=== PATIENT | female | born 1935 | race Two or more races ===

== ENCOUNTER 2018-07-26 12:49 | Inpatient (IN) | payer MEDICARE, BC ==
[~2018-07-26] VITALS: Ht 149.9 cm; Wt 59.5 kg
--- NOTE | 2018-07-26 13:00 | NUR ---
ED Nurse Note: Brought in by ambulance from home c/o due to SOB. POA, daughter called 911 Patient is under hospiece care. Awake, but non verbal. Sacral / heel skin is intact
[2018-07-26 13:55] LABS: BASOPHILS % (AUTO) 0.3 % (0.0-2.0); EOSINOPHILS % (AUTO) 0.1 % (0.0-3.0); HEMATOCRIT 48.9 % (37.0-47.0); HEMOGLOBIN 15.7 G/DL (12.0-16.0); LYMPHOCYTES % (AUTO) 9.5 % (20.0-45.0); MEAN CORPUSCULAR VOLUME 93 FL (80-99); MONOCYTES % (AUTO) 6.5 % (1.0-10.0); NEUTROPHILS % (AUTO) 83.6 % (45.0-75.0); PLATELET COUNT 362 K/UL (150-450); RED BLOOD COUNT 5.23 M/UL (4.20-5.40); RED CELL DISTRIBUTION WIDTH 13.4 % (11.6-14.8); WHITE BLOOD COUNT 10.9 K/UL (4.8-10.8)
[2018-07-26 14:07] LABS: ANION GAP 4 mmol/L (5-15); BLOOD UREA NITROGEN 57 mg/dL (7-18); CALCIUM 9.9 MG/DL (8.5-10.1); CARBON DIOXIDE 33 MMOL/L (21-32); CHLORIDE 113 MMOL/L (98-107); CREATININE 1.2 MG/DL (0.55-1.30); POTASSIUM 3.7 MMOL/L (3.5-5.1); SODIUM 150 MMOL/L (136-145)
[2018-07-26] MEDS ORDERED: UNOBMED (14:08)
[2018-07-26 14:12] LABS: ALANINE AMINOTRANSFERASE 22 U/L (12-78); ALBUMIN 3.5 G/DL (3.4-5.0); ALBUMIN/GLOBULIN RATIO 0.9 (1.0-2.7); ALKALINE PHOSPHATASE 67 U/L (46-116); ASPARTATE AMINO TRANSFERASE 45 U/L (15-37); BILIRUBIN,TOTAL 0.8 MG/DL (0.2-1.0); CREATINE KINASE 162 U/L (26-308)
[2018-07-26] MEDS ORDERED: Levalbuterol Inh UD 1.25mg/0.5ml HHN ONE (14:15)
[2018-07-26] MEDS ORDERED: LORazepam Inj 2mg/ml 1ml IV ONE (14:15)
[2018-07-26] MEDS ORDERED: Solu-MEDROL 125mg Inj IVP ONE (14:30)
--- NOTE | 2018-07-26 14:43 | Emergency Room Report ---
History of Present Illness General Chief Complaint: Dyspnea/Respdistress Source: Patient, Family Member, EMS Present Illness HPI Patient presents by paramedics with reports of respiratory distress Sensation of doom Daughter is here who reports the patient is in hospice care they have been attempting IV hydration Also antipsychotic medication however the patient appeared extremely agitated she did not feel comfortable with the patient at home and call paramedics Patient herself is nonverbal Has a gaze to the right side Upon arrival of the daughter she reports that the patient looks significantly better than previous She is still requesting no intubation and no CPR Allergies: Coded Allergies: ASPIRIN (Verified Allergy, Unknown, 07/26/18) Patient History Past Medical History: see triage record Pertinent Family History: none Reviewed Nursing Documentation: PMH: Agreed; PSxH: Agreed Nursing Documentation-PMH Past Medical History: No History, Except For Hx Cardiac Problems: Yes Hx Hypertension: Yes Hx COPD: Yes - emphysema Hx Diabetes: Yes Review of Systems All Other Systems: limited - Other than the ones mentioned in the history of present illness all others are reviewed however they do stay limited due to the patient's mental status Physical Exam Vital Signs Date Time Temp Pulse Resp B/P (MAP) Pulse Ox O2 Delivery O2 Flow Rate FiO2 07/26/18 12:53 95.2 120 4 141/90 97 Room Air 07/26/18 14:21 4.0 36 Sp02 EP Interpretation: reviewed, normal General Appearance: moderate distress - Tachypneic Head: normocephalic, atraumatic Eyes: bilateral eye PERRL, bilateral eye EOMI ENT: dry mucus membranes Neck: supple, no meningismus Respiratory: crackles, wheezing - Bilaterally mildly tachypneic Cardiovascular #1: tachycardia Gastrointestinal: non tender, soft Musculoskeletal: normal inspection Neurologic: other - Responsive to physical stimuli otherwise decreased GCS nonverbal, daughter reports is normal for the patient Skin: normal color, no rash Lymphatic: no adenopathy Procedures Critical Care Time Critical Care Time 50 minutes for multiple re-evaluations, critical presentation concerning for specific failure not including any procedural time Medical Decision Making Diagnostic Impression: Primary Impression: Respiratory distress ER Course Patient is a fairly complex patient with multiple differential to consideration including but not limited to cardiac cardiopulmonary and vascular emergencies Patient provided with further hydration breathing treatments oxygenation daughter reports the patient looks significantly improved She would like to have the patient remain DO NOT RESUSCITATE, and no CPR however would like some intervention regarding IV hydration and comfort care X-ray does not show any acute pathology patient admitted for further inpatient care Labs Test 07/26/18 13:15 White Blood Count 10.9 K/UL (4.8-10.8) Red Blood Count 5.23 M/UL (4.20-5.40) Hemoglobin 15.7 G/DL (12.0-16.0) Hematocrit 48.9 % (37.0-47.0) Mean Corpuscular Volume 93 FL (80-99) Mean Corpuscular Hemoglobin 30.1 PG (27.0-31.0) Mean Corpuscular Hemoglobin Concent 32.1 G/DL (32.0-36.0) Red Cell Distribution Width 13.4 % (11.6-14.8) Platelet Count 362 K/UL (150-450) Mean Platelet Volume 5.4 FL (6.5-10.1) Neutrophils (%) (Auto) 83.6 % (45.0-75.0) Lymphocytes (%) (Auto) 9.5 % (20.0-45.0) Monocytes (%) (Auto) 6.5 % (1.0-10.0) Eosinophils (%) (Auto) 0.1 % (0.0-3.0) Basophils (%) (Auto) 0.3 % (0.0-2.0) Sodium Level 150 MMOL/L (136-145) Potassium Level 3.7 MMOL/L (3.5-5.1) Chloride Level 113 MMOL/L (98-107) Carbon Dioxide Level 33 MMOL/L (21-32) Anion Gap 4 mmol/L (5-15) Blood Urea Nitrogen 57 mg/dL (7-18) Creatinine 1.2 MG/DL (0.55-1.30) Estimat Glomerular Filtration Rate mL/min (>60) Glucose Level 130 MG/DL (74-106) Lactic Acid Level 1.40 mmol/L (0.4-2.0) Calcium Level 9.9 MG/DL (8.5-10.1) Total Bilirubin 0.8 MG/DL (0.2-1.0) Aspartate Amino Transf (AST/SGOT) 45 U/L (15-37) Alanine Aminotransferase (ALT/SGPT) 22 U/L (12-78) Alkaline Phosphatase 67 U/L (46-116) Total Creatine Kinase 162 U/L (26-308) Troponin I 0.470 ng/mL (0.000-0.056) Total Protein 7.4 G/DL (6.4-8.2) Albumin 3.5 G/DL (3.4-5.0) Globulin 3.9 g/dL Albumin/Globulin Ratio 0.9 (1.0-2.7) Rhythm Strip Diag. Results EP Interpretation: yes Rate: 125 Rhythm: no PVC's, no ectopy, other - Sinus tach Chest X-Ray Diagnostic Results Chest X-Ray Diagnostic Results : Chest X-Ray Ordered: Yes # of Views/Limited/Complete: 1 View Indication: Chest Pain EP Interpretation: Yes Interpretation: no consolidation, no effusion, no pneumothorax Impression: No acute disease - Some pulmonary congestion Electronically Signed by: Delfina Boone DO Last Vital Signs Date Time Temp Pulse Resp B/P (MAP) Pulse Ox O2 Delivery O2 Flow Rate FiO2 07/26/18 14:34 119 19 98 Nasal Cannula 4.0 36 07/26/18 12:53 95.2 141/90 Status: improved Disposition: ADMITTED INPATIENT Condition: Critical Referrals: NON PHYSICIAN (PCP) Delfina Boone DO Jul 26, 2018 14:43
[2018-07-26 14:51] LABS: APPEARANCE,URINE CLEAR; BILIRUBIN, URINE NEGATIVE (NEGATIVE); GLUCOSE, URINE (UA) NEGATIVE (NEGATIVE); KETONES,URINE 2+ (NEGATIVE); LEUKOCYTE ESTERASE ,URINE NEGATIVE (NEGATIVE); NITRITE,URINE NEGATIVE (NEGATIVE); PH,URINE 5 (4.5-8.0); PROTEIN,URINE 3+ (NEGATIVE); UROBILINOGEN,URINE NORMAL MG/DL (0.0-1.0)
[2018-07-26 14:52] LABS: COLOR,URINE YELLOW
[2018-07-26] MEDS ORDERED: OLANZAPINE5 MG ORAL (14:58)
[2018-07-26] MEDS ORDERED: LORAZEPAM2 MG/1 M4 ORAL (14:58)
[2018-07-26] MEDS ORDERED: GABAPENTIN100 MG ORAL (14:58)
[2018-07-26 14:59] VITALS: BP 163/100
--- NOTE | 2018-07-26 15:02 | NUR ---
ED Nurse Note: Report given to Favian HARE Updated daughter Ivone AVILEZ, ENdorsed to Favian that Hospice Nurse number is [phone] Patient has no belongings
[2018-07-26 15:32] VITALS: BP 180/100
--- NOTE | 2018-07-26 15:36 | NUR ---
NURSE NOTES: received pt awake alert, nonverbal, no distress. 96%o2 on 2lnc, sacral intact, hr 130 by palpation, bp 180/100, relayedto Dr Warren along with asking md for prn and admit orders. awaiting response
--- NOTE | 2018-07-26 16:03 | NUR ---
NURSE NOTES: paged Dr Warren 2nd attempt to get admit orders also awaiting med info from [facility]
[2018-07-26] MEDS ORDERED: LORazepam 1mg tab ORAL PRN ×2 (16:30→18:30)
--- NOTE | 2018-07-26 16:49 | Diagnostic Imaging Report ---
Indication: Chest pain, history of COPD Technique: One view of the chest Comparison: none Findings: There is mild generalized interstitial prominence and central bronchial wall thickening. No focal airspace consolidation. No effusions. Heart size is normal. The aorta is tortuous and calcified Impression: Minimal interstitial prominence and central bronchial wall thickening, suspect related to senescent and/or COPD changes. No definite acute process
[2018-07-26] MEDS ORDERED: PREDNISONE20 MG ORAL (18:07)
[2018-07-26] MEDS ORDERED: ATROVENT HFA12.9 GM IH (18:07)
[2018-07-26] MEDS ORDERED: BISACODYL5 MG ORAL (18:07)
[2018-07-26] MEDS ORDERED: NTG1 PATC2 TDERMAL (18:07)
[2018-07-26] MEDS ORDERED: ELIQUIS2.5 MG PO (18:07)
[2018-07-26] MEDS ORDERED: PROTONIX40 MG ORAL (18:07)
[2018-07-26] MEDS ORDERED: CARDIZEM30 M1 PO (18:07)
[2018-07-26] MEDS ORDERED: METHADONE10 MG/1 M2 PO (18:07)
[2018-07-26] MEDS ORDERED: Acetaminophen 650 MG SUPP RECTAL PRN (18:30)
[2018-07-26] MEDS ORDERED: Miralax 17gm pkt ORAL PRN (18:30)
[2018-07-26] MEDS ORDERED: Bisacodyl EC 5mg tab ORAL PRN (18:30)
[2018-07-26] MEDS ORDERED: Ipratropium 0.02% Inh Soln 2.5ml UD HHN PRN (18:30)
[2018-07-26] MEDS ORDERED: Fleet's Enema 133ml RECTAL PRN (18:30)
[2018-07-26] MEDS: cefTRIAXone 1 GM in D5W 55 ML IVPB SCH (18:41)
[2018-07-26] MEDS: Albuterol/Ipratropium 3ml neb HHN SCH ×2 (19:00→23:53)
[2018-07-26 19:04] VITALS: BP 187/123
[2018-07-26] MEDS ORDERED: dilTIAZem HCl 30mg tab ORAL SCH (19:15)
--- NOTE | 2018-07-26 19:36 | NUR ---
NURSE NOTES: Dr Warren made aware of bp elevated after troponin , received order to give cardizem 30mg po xq1, ordered and given
--- NOTE | 2018-07-26 19:40 | NUR ---
NURSE NOTES: Received report from ANANYA Ballesteros. Patient in bed asleep showing no signs of acute distress. Respiration even and non labored on 2L. No SOB noted. HOB elevated, aspiration precaution observed. IV lines patent and intact. Bed in lowest position. Call light within reach. All needs attended and met. Will continue plan of care.
[2018-07-26 20:00] VITALS: BP 194/115
--- NOTE | 2018-07-26 20:43 | NUR ---
NURSE NOTES: Pt. BP 194/115, HR 141. Notified Dr. Cloud. No new orders given at this time.
[2018-07-26] MEDS ORDERED: Heparin 5000 units/ml inj SUBQ SCH (21:00)
[2018-07-26] MEDS: Nitroglycerin Patch 0.2mg/hr TDERMAL SCH (21:12)
[2018-07-26] MEDS: Eliquis 2.5mg tablet ORAL SCH (21:13)
--- NOTE | 2018-07-26 21:15 | History and Physical Report ---
DATE OF ADMISSION: 07/26/2018 PULMONARY/HISTORY AND PHYSICAL REASON FOR ADMISSION: Shortness of breath. HISTORY: This is an 83-year-old female, presented by paramedics with significant respiratory distress. The patient is apparently on hospice care. The patient is also on antipsychotics. The patient's family wanted to revoke hospice. The daughter still confirms Do Not Resuscitate status. The patient care discussed and reviewed. The patient is unable to give much in the way of history. Findings discussed with the nursing staff. The patient with multitude of medical problems PAST MEDICAL HISTORY: Notable for COPD. Other medical problems constipation, possible depression, urinary incontinence, hypothyroidism, possible coronary artery disease, dementia with psychosis, chronic pain, and possible thrombotic disorders. MEDICATIONS: Reviewed. ALLERGIES: Reviewed. SOCIAL HISTORY: The patient is a Do Not Resuscitate. She was previously on hospice. Disabled. REVIEW OF SYSTEMS: Unobtainable. PHYSICAL EXAMINATION: GENERAL: A well-developed, chronically ill female. VITAL SIGNS: However, vital signs, heart rate varying from 119 to 130, blood pressure 180/100, temperature is 98.5, and respiratory rate is 20. HEENT: Overall fairly negative. NECK: Otherwise supple. LUNGS: Moderate breath sounds. Scattered rhonchi and wheezes. CARDIAC: Tachycardic without murmurs or rubs. ABDOMEN: Soft and nontender. EXTREMITIES: No cyanosis. No clear clubbing. NEUROLOGIC: Confused, on oxygen, nonverbal currently. LABORATORY DATA: Reviewed. White count is 10.9, hematocrit 48, and platelets of 362,000. Chemistries noted. Sodium 150, BUN 57, and creatinine 1.2. Lactic acid 1.4. Troponin 0.47. The x-rays were reviewed with questionable interstitial changes with evidence of COPD. IMPRESSION: 1. Significant sinus tachycardia. 2. Elevated troponin. 3. Possible demand ischemia. 4. Possible acute myocardial infarction. 5. Evidence of acute renal failure. 6. Hypernatremia. 7. Chronic obstructive pulmonary disease. 8. Shortness of breath. RECOMMENDATIONS: 1. Supportive care. 2. Resume home medication. 3. IV hydration. 4. Renal evaluation. 5. Intravenous steroids. 6. Cardiology evaluation. 7. Monitor clinically for changes. 8. Do not resuscitate to be confirmed. 9. Prognosis is overall poor. 10. We will follow clinically for further changes and recommendations. Earl Warren M.D. DR: SUZETTE JOB#: [id number] CC: JUAN MIGUEL
[2018-07-26] MEDS: Solu-MEDROL 125mg Inj IVP SCH (21:17)
[2018-07-26] MEDS: LORazepam Inj 2mg/ml 1ml IV PRN (23:43)
[2018-07-27] VITALS: BP 150/90
--- NOTE | 2018-07-27 00:15 | Consultation ---
DATE OF CONSULTATION: 07/27/2018 CONSULTING PHYSICIAN: Mckay Uribe M.D. REFERRING PHYSICIAN: Earl Warren M.D. REASON FOR CONSULTATION: Elevated troponin level with tachycardia. HISTORY OF PRESENT ILLNESS: This is an 83-year-old female. She has been home on hospice care. She has advanced dementia. She apparently has not been able to take oral medications including her anxiolytics and analgesics and has become increasingly uncomfortable according to her daughter. Hospice care could assist and she was brought to the hospital. The patient is unable to give any historical data. Abnormal cardiovascular studies have prompted this consultation. PAST MEDICAL HISTORY: COPD, dementia with psychosis, neuropathy with chronic pain, hypothyroidism, history of type 2 diabetes mellitus, hypercoagulable state. ALLERGIES: Aspirin. MEDICATIONS: Reviewed and reconciled. FAMILY HISTORY: Noncontributory. SOCIAL HISTORY: Prior smoking history. No history of alcohol or substance abuse. Advance directives, DNR and more recently on hospice care. REVIEW OF SYSTEMS: Otherwise not obtainable. Pertinent data from family members as outlined above. PHYSICAL EXAMINATION: VITAL SIGNS: Temperature 95.2, blood pressure 141/90 in the emergency room with heart rate 120 and respiratory rate 24 and presently 118/100 with heart rate 130. HEENT: Temporal rate wasting, right-sided facial gaze. HEART: Regular rhythm rapid rate. Normal S1, S2. ABDOMEN: Soft. EXTREMITIES: With trace dependent edema. LABORATORY AND DIAGNOSTIC DATA: White count 10.9. Hematocrit 48, sodium 150, BUN 57, and creatinine 1.2. Troponin 0.47. IMPRESSION: 1. Hypertensive urgency. 2. Acute myocardial ischemia and possible non-ST elevation infarction. 3. Sinus tachycardia, possible withdrawal from benzodiazepine. 4. Acute renal failure. 5. Dehydration. 6. Hypernatremia. 7. COPD. 8. Paroxysmal bronchospasm. 9. Advanced dementia. PLAN: 1. Intravenous steroids. 2. Hypotonic IV fluids. 3. Cautious use of beta-shay. 4. IV benzodiazepine. 5. Pain control. 6. DVT prophylaxis. 7. Clarify comfort care. Mckay Uribe M.D. DR: Damien JOB#: [id number] CC: JUAN MIGUEL
[2018-07-27] MEDS ORDERED: Ipratropium 0.02% Inh Soln 2.5ml UD HHN SCH (01:00)
[2018-07-27] MEDS: Metoprolol Tartrate 10 MG in D5W 55 ML IVPB SCH ×4 (01:37→18:47)
[2018-07-27] MEDS: Albuterol/Ipratropium 3ml neb HHN SCH ×6 (03:12→23:22)
[2018-07-27 04:00] VITALS: BP 154/87
[2018-07-27] MEDS: dilTIAZem HCl 30mg tab ORAL SCH ×4 (06:00→18:00)
[2018-07-27] MEDS ORDERED: guaiFENesin 100mg/5ml Liq ud PO PRN (06:30)
--- NOTE | 2018-07-27 07:00 | NUR ---
HAND-OFF: Report given to ANANYA Uribe.
[2018-07-27 07:11] LABS: HEMATOCRIT 47.8 % (37.0-47.0); HEMOGLOBIN 15.5 G/DL (12.0-16.0); MEAN CORPUSCULAR VOLUME 93 FL (80-99); PLATELET COUNT 386 K/UL (150-450); RED BLOOD COUNT 5.13 M/UL (4.20-5.40); RED CELL DISTRIBUTION WIDTH 13.6 % (11.6-14.8)
[2018-07-27 07:21] LABS: ANION GAP 7 mmol/L (5-15); BLOOD UREA NITROGEN 69 mg/dL (7-18); CARBON DIOXIDE 32 MMOL/L (21-32); CHLORIDE 113 MMOL/L (98-107); CREATININE 1.3 MG/DL (0.55-1.30); POTASSIUM 3.6 MMOL/L (3.5-5.1); SODIUM 152 MMOL/L (136-145)
[2018-07-27 08:00] VITALS: BP 186/123
[2018-07-27] MEDS: Solu-MEDROL 125mg Inj IVP SCH (08:28)
[2018-07-27] MEDS: Eliquis 2.5mg tablet ORAL SCH ×2 (08:29→21:00)
[2018-07-27] MEDS: Tolterodine 2mg tab ORAL SCH (08:29)
[2018-07-27] MEDS: Citalopram Hydrobromide 10mg Tab ORAL SCH (08:29)
[2018-07-27] MEDS: Pantoprazole Inj IVP SCH ×2 (08:42→21:33)
--- NOTE | 2018-07-27 09:48 | Pulmonology Progress Note ---
Assessment/Plan Assessment/Plan IMPRESSION: 1. Significant sinus tachycardia. 2. Elevated troponin. 3. Possible demand ischemia. 4. Possible acute myocardial infarction. 5. Evidence of acute renal failure. 6. Hypernatremia. 7. Chronic obstructive pulmonary disease. 8. Shortness of breath. 9. hypertension 10. anxiety PLAN IV hydration bp rx iv solumedrol iv antibiotics ativan DNR confirmed prognosis poor impression, plan, and exam edited and reviewed in detail care discussed with RN Subjective ROS Limited/Unobtainable: Yes Allergies: Coded Allergies: ASPIRIN (Verified Allergy, Unknown, 07/26/18) Subjective withdrawn Objective Last 24 Hour Vital Signs Date Time Temp Pulse Resp B/P (MAP) Pulse Ox O2 Delivery O2 Flow Rate FiO2 07/27/18 08:27 186/123 07/27/18 08:01 94 Nasal Cannula 4.0 36 07/27/18 08:01 Nasal Cannula 4.0 36 07/27/18 08:00 98.3 127 21 186/123 (144) 93 07/27/18 07:59 124 19 94 Nasal Cannula 3.0 32 07/27/18 07:57 124 20 94 Nasal Cannula 3.0 32 07/27/18 05:46 128 174/111 07/27/18 04:00 99.0 121 20 154/87 (109) 92 07/27/18 04:00 120 07/27/18 03:23 117 19 96 Nasal Cannula 3.0 32 07/27/18 03:12 120 20 94 Nasal Cannula 3.0 32 07/27/18 01:37 153 156/92 07/27/18 00:00 98.8 117 22 150/90 (110) 90 07/27/18 00:00 117 150/90 07/27/18 00:00 159 07/26/18 23:53 Nasal Cannula 4.0 36 07/26/18 23:53 Nasal Cannula 4.0 36 07/26/18 23:11 173/113 07/26/18 21:45 98.6 07/26/18 21:16 194/115 07/26/18 21:12 194/115 07/26/18 21:00 Nasal Cannula 4.0 36 07/26/18 21:00 Nasal Cannula 2.0 07/26/18 21:00 95 Nasal Cannula 4.0 36 07/26/18 20:51 140 22 Nasal Cannula 4.0 36 07/26/18 20:48 140 20 96 Nasal Cannula 4.0 36 07/26/18 20:48 Nasal Cannula 07/26/18 20:00 101.1 148 20 194/115 (141) 93 07/26/18 20:00 140 07/26/18 19:24 140 187/123 07/26/18 19:04 98.5 140 20 187/123 (144) 95 07/26/18 17:16 180/100 07/26/18 16:15 123 07/26/18 16:08 Nasal Cannula 2.0 07/26/18 15:32 98.5 130 20 180/100 (126) 95 07/26/18 15:00 96.8 118 23 163/100 97 Nasal Cannula 4.0 36 07/26/18 14:59 119 23 Nasal Cannula 4.0 36 07/26/18 14:59 96.8 118 23 163/100 97 Nasal Cannula 4.0 36 07/26/18 14:34 119 19 98 Nasal Cannula 4.0 36 07/26/18 14:21 119 25 98 Nasal Cannula 4.0 36 07/26/18 14:21 119 34 Nasal Cannula 4.0 36 07/26/18 12:53 95.2 120 4 141/90 97 Room Air Objective GENERAL: A well-developed, chronically ill female. HEENT: Overall fairly negative. NECK: Otherwise supple. LUNGS: Moderate breath sounds. noted rhonchi and wheezes. CARDIAC: Tachycardic without murmurs or rubs. ABDOMEN: Soft and nontender. no distentions EXTREMITIES: No cyanosis. No clear clubbing. NEUROLOGIC: Confused, on oxygen, nonverbal currently. Laboratory Tests 07/26/18 13:15: White Blood Count 10.9H, Red Blood Count 5.23, Hemoglobin 15.7, Hematocrit 48.9H , Mean Corpuscular Volume 93, Mean Corpuscular Hemoglobin 30.1, Mean Corpuscular Hemoglobin Concent 32.1, Red Cell Distribution Width 13.4, Platelet Count 362, Mean Platelet Volume 5.4L, Neutrophils (%) (Auto) 83.6H, Lymphocytes (%) (Auto) 9.5L, Monocytes (%) (Auto) 6.5, Eosinophils (%) (Auto) 0.1, Basophils (%) (Auto) 0.3, Sodium Level 150H, Potassium Level 3.7, Chloride Level 113H, Carbon Dioxide Level 33H, Anion Gap 4L, Blood Urea Nitrogen 57H, Creatinine 1.2, Estimat Glomerular Filtration Rate , Glucose Level 130H, Lactic Acid Level 1.40, Calcium Level 9.9, Total Bilirubin 0.8, Aspartate Amino Transf (AST/SGOT) 45H, Alanine Aminotransferase (ALT/SGPT) 22, Alkaline Phosphatase 67 , Total Creatine Kinase 162, Troponin I 0.470H, Total Protein 7.4, Albumin 3.5, Globulin 3.9, Albumin/Globulin Ratio 0.9L 07/26/18 14:32: Urine Color Yellow, Urine Appearance Clear, Urine pH 5, Urine Specific [place] 1.025, Urine Protein 3+H, Urine Glucose (UA) Negative, Urine Ketones 2+H, Urine Blood 2+H, Urine Nitrite Negative, Urine Bilirubin Negative, Urine Urobilinogen Normal, Urine Leukocyte Esterase Negative, Urine RBC 2-4H, Urine WBC 0, Urine Squamous Epithelial Cells Occasional, Urine Bacteria None 07/27/18 04:00: Arterial Blood pH 7.450, Arterial Blood Partial Pressure CO2 41.9, Arterial Blood Partial Pressure O2 70.6L, Arterial Blood HCO3 28.7H, Arterial Blood Oxygen Saturation 94.0L, Arterial Blood Base Excess 4.2H, [place] Test Positive 07/27/18 05:55: White Blood Count 7.0, Red Blood Count 5.13, Hemoglobin 15.5, Hematocrit 47.8H, Mean Corpuscular Volume 93, Mean Corpuscular Hemoglobin 30.2, Mean Corpuscular Hemoglobin Concent 32.4, Red Cell Distribution Width 13.6, Platelet Count 386, Mean Platelet Volume 5.2L, Neutrophils (%) (Auto) , Lymphocytes (%) (Auto) , Monocytes (%) (Auto) , Eosinophils (%) (Auto) , Basophils (%) (Auto) , Sodium Level 152H, Potassium Level 3.6, Chloride Level 113H, Carbon Dioxide Level 32, Anion Gap 7, Blood Urea Nitrogen 69H, Creatinine 1.3, Estimat Glomerular Filtration Rate , Glucose Level 217H, Calcium Level 10.0, Neutrophils % (Manual ) [Pending], Lymphocytes % (Manual) [Pending], Platelet Estimate [Pending], Platelet Morphology [Pending] Current Medications Medications (Trade) Dose Ordered Sig/Edwina Route PRN Reason Start Time Stop Time Status Last Admin Dose Admin Acetaminophen (Tylenol) 650 mg Q4H PRN RECTAL Mild Pain (Pain Scale 1-3) 07/26/18 18:30 08/25/18 18:29 07/26/18 21:15 Albuterol/ Ipratropium (Albuterol/ Ipratropium) 3 ml Q4HRT HHN 07/26/18 19:00 07/31/18 18:59 07/27/18 03:12 Apixaban (Eliquis) 2.5 mg Q12HR ORAL 07/26/18 21:00 08/25/18 20:59 07/27/18 08:29 Atropine Sulfate (Atropine Opth [place]) 2 drop Q2H PRN SL oral secretions 07/26/18 19:00 08/25/18 18:59 Bisacodyl (Dulcolax) 5 mg DAILYPRN PRN ORAL Constipation 07/26/18 18:30 08/25/18 18:29 Bisacodyl (Dulcolax) 10 mg DAILYPRN PRN RECTAL Constipation 07/26/18 18:30 08/25/18 18:29 Ceftriaxone Sodium 1 gm/ Dextrose 55 ml @ 110 mls/hr Q24H IVPB 07/26/18 18:00 08/02/18 17:59 07/26/18 18:41 Citalopram Hydrobromide (celeXA) 20 mg DAILY ORAL 07/27/18 09:00 08/26/18 08:59 Clonidine HCl (Catapres Tab) 0.1 mg Q4H PRN ORAL sbp>150 07/26/18 16:30 08/25/18 16:29 07/27/18 08:27 Diltiazem HCl (Cardizem) 30 mg Q6HR ORAL 07/27/18 00:00 08/26/18 00:00 Gabapentin (Neurontin) 100 mg QHS ORAL 07/26/18 21:00 08/25/18 20:59 07/26/18 21:16 Guaifenesin (Robitussin) 400 mg Q6H PRN PO For Cough 07/27/18 06:30 08/26/18 06:29 Hydralazine HCl (Apresoline) 10 mg Q4H PRN IV SBP above 160 07/26/18 23:00 08/25/18 22:59 07/26/18 23:11 Ipratropium [place] (Atrovent) 500 mcg Q4H PRN HHN Shortness of Breath 07/26/18 18:30 07/31/18 18:29 Levothyroxine Sodium (Synthroid) 75 mcg DAILY@0630 ORAL 07/27/18 06:30 08/26/18 06:29 Lorazepam (Ativan 2mg/ml 1ml) 1 mg Q4H PRN IV For Anxiety 07/26/18 21:00 08/02/18 20:59 07/26/18 23:43 Methylprednisolone Sodium Succinate (Solu-MEDROL) 60 mg EVERY 12 HOURS IVP 07/26/18 21:00 08/25/18 20:59 07/27/18 08:28 Metoprolol Tartrate 10 mg/ Dextrose 65 ml @ 130 mls/hr Q6HR IVPB 07/27/18 00:00 08/26/18 00:00 07/27/18 05:46 Nitroglycerin (Ntg) 1 patch Q24H TDERMAL 07/26/18 20:00 08/25/18 19:59 07/26/18 21:12 Olanzapine (ZyPREXA) 5 mg QPM ORAL 07/27/18 16:30 08/26/18 16:29 Ondansetron HCl (Zofran) 4 mg Q6H PRN IVP Nausea & Vomiting 07/26/18 22:45 08/25/18 22:44 Pantoprazole (Protonix) 40 mg Q12HR IVP 07/27/18 09:00 08/26/18 08:59 07/27/18 08:42 Polyethylene Glycol (Miralax) 17 gm DAILY PRN ORAL Constipation 07/26/18 18:30 08/25/18 18:29 Sodium Chloride 1,000 ml @ 100 mls/hr Q10H IV 07/26/18 17:00 08/25/18 16:59 07/26/18 17:00 Sodium Phosphate (Fleet's Sodium Phosl Enema) 133 ml DAILYPRN PRN RECTAL constipation 07/26/18 18:30 08/25/18 18:29 Tolterodine Tartrate (Detrol) 2 mg DAILY ORAL 07/27/18 09:00 08/26/18 08:59 Earl Warren MD Jul 27, 2018 09:48
[2018-07-27 12:00] VITALS: BP 179/118
[2018-07-27 16:00] VITALS: BP 170/96
[2018-07-27] MEDS: cefTRIAXone 1 GM in D5W 55 ML IVPB SCH (18:48)
--- NOTE | 2018-07-27 19:59 | NUR ---
HAND-OFF: Report given to ANANYA Orosco. Patient sitting in semi-Hartman's position, sleeping, non-arousable to voice, on venturi mask, daughter at bedside, bed in lowest position, call light within reach, in no apparent distress.
[2018-07-27 20:00] VITALS: BP 155/89
[2018-07-27] MEDS: Nitroglycerin Patch 0.2mg/hr TDERMAL SCH (21:33)
[2018-07-28] VITALS: BP 159/95
[2018-07-28] MEDS: Metoprolol Tartrate 10 MG in D5W 55 ML IVPB SCH ×5 (00:08→23:51)
[2018-07-28] MEDS: Albuterol/Ipratropium 3ml neb HHN SCH ×6 (03:18→22:57)
[2018-07-28 04:00] VITALS: BP 132/77
--- NOTE | 2018-07-28 04:00 | Progress Note ---
DATE: 07/27/2018 CARDIOLOGY PROGRESS NOTE SUBJECTIVE: The patient's condition has deteriorated further. She remains congested, short of breath, tachycardic, poorly responsive. She is unable to take any nutrition orally. Blood pressure is labile ranging up to 186/118, presently down to 151/94, heart rate 90, respiratory rate 20, she is on a Venturi mask. OBJECTIVE: LUNGS: Bilateral breath sounds, rhonchi. HEART: Regular rhythm. Rapid rate. Normal S1, S2. ABDOMEN: Soft. EXTREMITIES: Trace edema. LABORATORY DATA: White count 7, hemoglobin 15. Sodium 152, potassium 3.6, bicarbonate 32, chloride 113, BUN 69, creatinine 1.3, glucose 217. ABG, 7.45, 42, 71. IMPRESSION: 1. Hypertensive urgency. 2. Severe dehydration, hypernatremia, and hyperchloremia. 3. Prerenal azotemia with acute kidney injury. 4. Acute myocardial ischemia and possible non-ST elevation myocardial infarction. 5. Advanced dementia. 6. Secondary polycythemia. 7. COPD with paroxysmal bronchospasm and possible aspiration pneumonia. 8. Aspirin allergy. 9. Hx hypercoaguable state. PLAN: 1. DNR, DNI. 2. Intravenous antibiotics. 3. Inhaled bronchodilators. 4. Intravenous steroids. 5. Hypotonic IV fluid hydration. 6. Intravenous and topical antihypertensives. 7. Continue full anti-coagulation. 8. Condition, critical. Prognosis guarded. Mckay Uribe M.D. DR: ROSE JOB#: [id number] CC: JUAN MIGUEL
[2018-07-28] MEDS: dilTIAZem HCl 30mg tab ORAL SCH ×5 (06:00→23:52)
--- NOTE | 2018-07-28 07:14 | NUR ---
HAND-OFF: Report given to ANANYA Felton.
--- NOTE | 2018-07-28 07:30 | NUR ---
Received patient in bed asleep showing no signs of acute distress. Respiration even and non labored on 9L O2 Venturi Mask. No SOB noted. HOB elevated, aspiration precaution observed. IV lines patent, intact and running at prescribed rate. Bed in lowest position. Call light within reach. All needs attended and met. Will continue plan of care.
[2018-07-28 08:00] VITALS: BP 140/82
[2018-07-28] MEDS: Citalopram Hydrobromide 10mg Tab ORAL SCH (08:45)
[2018-07-28] MEDS: Pantoprazole Inj IVP SCH ×2 (08:45→21:24)
[2018-07-28] MEDS: Tolterodine 2mg tab ORAL SCH (08:46)
[2018-07-28] MEDS: Eliquis 2.5mg tablet ORAL SCH ×2 (08:46→21:00)
[2018-07-28] MEDS ORDERED: Solu-MEDROL 125mg Inj IVP SCH (09:00)
--- NOTE | 2018-07-28 10:10 | Pulmonology Progress Note ---
Assessment/Plan Assessment/Plan IMPRESSION: 1. sinus tachycardia. 2. Elevated troponin. 3. Possible demand ischemia. 4. Possible acute myocardial infarction. 5. Evidence of acute renal failure. 6. Hypernatremia. 7. Chronic obstructive pulmonary disease. 8. Shortness of breath. 9. hypertension 10. anxiety PLAN IV hydration bp rx dc solumedrol ?dc antibiotics ativan prn DNR confirmed prognosis poor; possible dc per daughter's approval impression, plan, and exam edited and reviewed in detail care discussed with RN Subjective ROS Limited/Unobtainable: Yes Allergies: Coded Allergies: ASPIRIN (Verified Allergy, Unknown, 07/26/18) Subjective withdrawn poorly responsive per daughter, would like to return to hospice but wants pain and anxiety controlled Objective Last 24 Hour Vital Signs Date Time Temp Pulse Resp B/P (MAP) Pulse Ox O2 Delivery O2 Flow Rate FiO2 07/28/18 07:43 91 22 97 Venturi Mask 8.0 40 07/28/18 07:33 Venturi Mask 8.0 40 07/28/18 07:33 95 Venturi Mask 8.0 40 07/28/18 07:33 91 24 95 Venturi Mask 8.0 40 07/28/18 05:56 91 135/79 07/28/18 04:00 97.2 90 18 132/77 (95) 97 07/28/18 04:00 90 07/28/18 03:28 89 20 98 Venturi Mask 8.0 40 07/28/18 03:18 90 20 96 Venturi Mask 8.0 40 07/28/18 00:08 92 159/95 07/28/18 00:00 97.8 92 20 159/95 (116) 96 07/28/18 00:00 92 07/28/18 00:00 92 159/95 07/27/18 23:32 93 20 97 Venturi Mask 8.0 40 07/27/18 23:22 89 20 96 Venturi Mask 8.0 40 07/27/18 21:33 151/94 07/27/18 21:00 Nasal Cannula 2.0 07/27/18 20:12 89 20 97 Venturi Mask 8.0 40 07/27/18 20:02 93 22 95 Venturi Mask 8.0 40 07/27/18 20:02 95 Venturi Mask 8.0 40 07/27/18 20:02 Nasal Cannula 8.0 40 07/27/18 20:00 97.7 92 20 155/89 (111) 95 07/27/18 20:00 95 07/27/18 18:47 92 170/96 07/27/18 18:00 92 170/96 07/27/18 16:00 98.4 92 18 170/96 (120) 95 07/27/18 16:00 92 07/27/18 15:28 121 20 95 Venturi Mask 8.0 40 07/27/18 15:28 121 20 96 Venturi Mask 8.0 40 07/27/18 12:32 125 186/123 07/27/18 12:32 125 186/123 07/27/18 12:00 119 07/27/18 12:00 98.3 122 18 179/118 (138) 96 07/27/18 11:00 125 20 95 Venturi Mask 8.0 40 07/27/18 11:00 125 20 95 Venturi Mask 8.0 40 Intake and Output 07/27/18 07/28/18 19:00 07:00 Intake Total 1341.6 ml Output Total 200 ml Balance -200 ml 1341.6 ml Intake IV Total 1341.6 ml Output Urine Total 200 ml Objective GENERAL: A well-developed, chronically ill female. poorly responsive HEENT: Overall fairly negative. NECK: Otherwise supple. LUNGS: Moderate breath sounds. noted rhonchi and wheezes. CARDIAC: Tachycardic without murmurs or rubs. ABDOMEN: Soft and nontender. no distentions EXTREMITIES: No cyanosis. No clear clubbing. NEUROLOGIC: noncommunicative nonverbal currently. Microbiology Date/Time Source Procedure Growth Status 07/26/18 13:15 Blood Blood Culture - Preliminary NO GROWTH AFTER 24 HOURS Resulted 07/26/18 13:15 Blood Blood Culture - Preliminary NO GROWTH AFTER 24 HOURS Resulted Current Medications Medications (Trade) Dose Ordered Sig/Edwina Route PRN Reason Start Time Stop Time Status Last Admin Dose Admin Acetaminophen (Tylenol) 650 mg Q4H PRN RECTAL Mild Pain (Pain Scale 1-3) 07/26/18 18:30 08/25/18 18:29 07/26/18 21:15 Albuterol/ Ipratropium (Albuterol/ Ipratropium) 3 ml Q4HRT HHN 07/26/18 19:00 07/31/18 18:59 07/28/18 07:33 Apixaban (Eliquis) 2.5 mg Q12HR ORAL 07/26/18 21:00 08/25/18 20:59 07/27/18 08:29 Atropine Sulfate (Atropine Opth Anabelle) 2 drop Q2H PRN SL oral secretions 07/26/18 19:00 08/25/18 18:59 Bisacodyl (Dulcolax) 5 mg DAILYPRN PRN ORAL Constipation 07/26/18 18:30 08/25/18 18:29 Bisacodyl (Dulcolax) 10 mg DAILYPRN PRN RECTAL Constipation 07/26/18 18:30 08/25/18 18:29 Ceftriaxone Sodium 1 gm/ Dextrose 55 ml @ 110 mls/hr Q24H IVPB 07/26/18 18:00 08/02/18 17:59 07/27/18 18:48 Citalopram Hydrobromide (celeXA) 20 mg DAILY ORAL 07/27/18 09:00 08/26/18 08:59 Clonidine HCl (Catapres Tab) 0.1 mg Q4H PRN ORAL sbp>150 07/26/18 16:30 08/25/18 16:29 07/27/18 08:27 Dextrose 1,000 ml @ 200 mls/hr Q5H IV 07/27/18 13:30 08/26/18 13:29 07/28/18 08:47 Diltiazem HCl (Cardizem) 30 mg Q6HR ORAL 07/27/18 00:00 08/26/18 00:00 07/27/18 12:32 Gabapentin (Neurontin) 100 mg QHS ORAL 07/26/18 21:00 08/25/18 20:59 07/26/18 21:16 Guaifenesin (Robitussin) 400 mg Q6H PRN PO For Cough 07/27/18 06:30 08/26/18 06:29 Hydralazine HCl (Apresoline) 10 mg Q4H PRN IV SBP above 160 07/26/18 23:00 08/25/18 22:59 07/26/18 23:11 Ipratropium [place] (Atrovent) 500 mcg Q4H PRN HHN Shortness of Breath 07/26/18 18:30 07/31/18 18:29 Levothyroxine Sodium (Synthroid) 75 mcg DAILY@0630 ORAL 07/27/18 06:30 08/26/18 06:29 Lorazepam (Ativan 2mg/ml 1ml) 1 mg Q4H PRN IV For Anxiety 07/26/18 21:00 08/02/18 20:59 07/26/18 23:43 Methylprednisolone Sodium Succinate (Solu-MEDROL) 60 mg DAILY IVP 07/28/18 09:00 08/25/18 20:59 07/28/18 08:45 Metoprolol Tartrate 10 mg/ Dextrose 65 ml @ 130 mls/hr Q6HR IVPB 07/27/18 00:00 08/26/18 00:00 07/28/18 05:56 Nitroglycerin (Ntg) 1 patch Q24H TDERMAL 07/26/18 20:00 08/25/18 19:59 07/27/18 21:33 Olanzapine (ZyPREXA) 5 mg QPM ORAL 07/27/18 16:30 08/26/18 16:29 Ondansetron HCl (Zofran) 4 mg Q6H PRN IVP Nausea & Vomiting 07/26/18 22:45 08/25/18 22:44 Pantoprazole (Protonix) 40 mg Q12HR IVP 07/27/18 09:00 08/26/18 08:59 07/28/18 08:45 Polyethylene Glycol (Miralax) 17 gm DAILY PRN ORAL Constipation 07/26/18 18:30 08/25/18 18:29 Tolterodine Tartrate (Detrol) 2 mg DAILY ORAL 07/27/18 09:00 08/26/18 08:59 Earl Warren MD Jul 28, 2018 10:10
[2018-07-28 11:49] VITALS: BP 140/82
[2018-07-28] MEDS ORDERED: Metoprolol 5mg/5ml Inj ONE (12:39)
[2018-07-28] MEDS: LORazepam Inj 2mg/ml 1ml IV PRN ×2 (15:25→21:24)
[2018-07-28 16:24] VITALS: BP 130/78
[2018-07-28] MEDS: cefTRIAXone 1 GM in D5W 55 ML IVPB SCH (17:32)
--- NOTE | 2018-07-28 19:09 | NUR ---
NURSE NOTES: PER FAMILY REQUEST PLS ADMIN ATIVAN EVERY 4 HOURS FOR COMFORT REASONS TONIGHT AND HOLD ON GIVING ATIVAN TOMORROW MORNING
--- NOTE | 2018-07-28 19:15 | NUR ---
NURSE NOTES: Received report from ANANYA Felton. Patient in bed asleep showing no signs of acute distress. Respiration even and non labored on 9L O2 Venturi Mask. No SOB noted. HOB elevated, aspiration precaution observed. IV lines patent and intact. Bed in lowest position. Call light within reach. All needs attended and met. Will continue plan of care.
[2018-07-28] MEDS ORDERED: Tubing IV Secondary IV ONE (19:26)
[2018-07-28 20:00] VITALS: BP 134/80
[2018-07-29] VITALS: BP 146/90
--- NOTE | 2018-07-29 | Progress Note ---
CARDIOLOGY PROGRESS NOTE DATE: 07/28/2018 SUBJECTIVE: The patient appears comfortable and is withdrawn and poorly responsive. Her daughter is at bedside and feels that the patient has anxiety and pain. OBJECTIVE: VITAL SIGNS: Blood pressure 135/79, pulse 91, and respirations 18. Monitored sinus tachycardia. LUNGS: Good breath sounds. No wheezing. HEART: Regular rhythm and rate. Normal S1, S2. ABDOMEN: Soft. EXTREMITIES: No edema. LABORATORY DATA: Blood cultures negative. IMPRESSION: 1. Dehydration. 2. Hyponatremia. 3. Advanced dementia. 4. Anxiety. 5. Secondary sinus tachycardia. 6. Probable acute myocardial ischemia. 7. Hypercoaguable state. PLAN: 1. Pain control. 2. Anxiolytics. 3. Hypotonic IV fluids. 4. Recheck laboratory studies. 5. DNR, DNI. 6. Continue current cardiovascular regimen without change, including apixaban. Mckay Uribe M.D. DR: SUSY JOB#: [id number] CC: JUAN MIGUEL
[2018-07-29] MEDS: Albuterol/Ipratropium 3ml neb HHN SCH ×5 (02:57→19:15)
[2018-07-29 04:00] VITALS: BP 135/79
[2018-07-29] MEDS: Metoprolol Tartrate 10 MG in D5W 55 ML IVPB SCH ×4 (05:32→23:41)
[2018-07-29] MEDS: dilTIAZem HCl 30mg tab ORAL SCH ×4 (05:32→23:41)
--- NOTE | 2018-07-29 07:33 | NUR ---
HAND-OFF: Report given to ANANYA Hernandez.
--- NOTE | 2018-07-29 07:34 | NUR ---
NURSE NOTES: Received report from ANANYA Martin. Patient is resting in bed asleep showing no signs of acute distress at this time. Respiration even and non labored on 9L O2 Venturi Mask. HOB elevated, aspiration precaution observed. IV lines patent, intact and running at prescribed rate. Bed in lowest position with two side rails up. Call light and bed side table within reach. Will continue plan of care.
[2018-07-29 07:38] LABS: HEMATOCRIT 49.3 % (37.0-47.0); HEMOGLOBIN 16.4 G/DL (12.0-16.0); MEAN CORPUSCULAR VOLUME 94 FL (80-99); PLATELET COUNT 319 K/UL (150-450); RED BLOOD COUNT 5.26 M/UL (4.20-5.40); RED CELL DISTRIBUTION WIDTH 13.6 % (11.6-14.8); WHITE BLOOD COUNT 19.2 K/UL (4.8-10.8)
[2018-07-29 08:00] VITALS: BP 134/84
[2018-07-29 08:02] LABS: ALANINE AMINOTRANSFERASE 26 U/L (12-78); ALBUMIN 3.2 G/DL (3.4-5.0); ALBUMIN/GLOBULIN RATIO 0.8 (1.0-2.7); ALKALINE PHOSPHATASE 57 U/L (46-116); ANION GAP 5 mmol/L (5-15); ASPARTATE AMINO TRANSFERASE 36 U/L (15-37); BILIRUBIN,TOTAL 0.9 MG/DL (0.2-1.0); BLOOD UREA NITROGEN 48 mg/dL (7-18); CALCIUM 9.5 MG/DL (8.5-10.1); CARBON DIOXIDE 32 MMOL/L (21-32); CHLORIDE 99 MMOL/L (98-107); CREATININE 1.2 MG/DL (0.55-1.30); POTASSIUM 4.8 MMOL/L (3.5-5.1); SODIUM 136 MMOL/L (136-145)
--- NOTE | 2018-07-29 08:19 | Pulmonology Progress Note ---
Assessment/Plan Assessment/Plan IMPRESSION: 1. sinus tachycardia. 2. Elevated troponin. 3. Possible demand ischemia. 4. Possible acute myocardial infarction. 5. Evidence of acute renal failure. 6. Hypernatremia. 7. Chronic obstructive pulmonary disease. 8. Shortness of breath. 9. hypertension 10. anxiety PLAN IV hydration bp rx elevated wbc ?due to steroid use dc antibiotics ativan prn DNR confirmed prognosis poor; possible dc pending d/w daughter impression, plan, and exam edited and reviewed in detail care discussed with RN Subjective ROS Limited/Unobtainable: Yes Allergies: Coded Allergies: ASPIRIN (Verified Allergy, Unknown, 07/26/18) Subjective withdrawn poorly responsive Objective Last 24 Hour Vital Signs Date Time Temp Pulse Resp B/P (MAP) Pulse Ox O2 Delivery O2 Flow Rate FiO2 07/29/18 06:59 87 18 94 Venturi Mask 8.0 40 07/29/18 06:53 92 Venturi Mask 8.0 40 07/29/18 06:53 Venturi Mask 8.0 40 07/29/18 06:53 89 18 92 Venturi Mask 8.0 40 07/29/18 05:32 58 145/67 07/29/18 04:00 88 07/29/18 04:00 96.7 88 20 135/79 (97) 96 07/29/18 03:11 86 22 97 Venturi Mask 8.0 40 07/29/18 02:57 90 22 96 Venturi Mask 8.0 40 07/29/18 00:00 96.6 85 16 146/90 (108) 96 07/28/18 23:51 118 124/67 07/28/18 23:07 59 22 98 Venturi Mask 8.0 40 07/28/18 22:57 59 22 97 Venturi Mask 8.0 40 07/28/18 21:00 Nasal Cannula 2.0 07/28/18 20:09 89 22 95 Venturi Mask 8.0 40 07/28/18 20:00 96.8 86 20 134/80 (98) 95 07/28/18 20:00 90 07/28/18 19:59 Venturi Mask 8.0 40 07/28/18 19:59 88 22 95 Venturi Mask 8.0 40 07/28/18 19:59 95 Venturi Mask 8.0 40 07/28/18 17:29 94 130/78 07/28/18 17:26 94 130/78 07/28/18 16:24 97.4 94 22 130/78 (95) 100 07/28/18 16:00 90 07/28/18 15:35 89 22 97 Venturi Mask 8.0 40 07/28/18 15:22 91 26 92 Venturi Mask 8.0 40 07/28/18 13:49 95 140/82 07/28/18 12:00 91 07/28/18 11:49 97.2 95 22 140/82 (101) 100 07/28/18 11:25 91 24 98 Venturi Mask 8.0 40 07/28/18 11:15 92 23 98 Venturi Mask 8.0 40 07/28/18 10:23 Nasal Cannula 2.0 Intake and Output 07/28/18 07/29/18 19:00 07:00 Intake Total 1800 ml 565 ml Balance 1800 ml 565 ml Intake IV Total 1800 ml 565 ml Objective GENERAL: A well-developed, chronically ill female. poorly responsive HEENT: Overall fairly negative. NECK: Otherwise supple. LUNGS: Moderate breath sounds. noted rhonchi and wheezes. CARDIAC: Tachycardic without murmurs or rubs. ABDOMEN: Soft and nontender. no distentions EXTREMITIES: No cyanosis. No clear clubbing. NEUROLOGIC: noncommunicative nonverbal currently. Microbiology Date/Time Source Procedure Growth Status 07/26/18 13:15 Blood Blood Culture - Preliminary NO GROWTH AFTER 48 HOURS Resulted 07/26/18 13:15 Blood Blood Culture - Preliminary NO GROWTH AFTER 48 HOURS Resulted Laboratory Tests 07/29/18 05:55: White Blood Count 19.2H, Red Blood Count 5.26, Hemoglobin 16.4H, Hematocrit 49.3H, Mean Corpuscular Volume 94, Mean Corpuscular Hemoglobin 31.3H, Mean Corpuscular Hemoglobin Concent 33.4, Red Cell Distribution Width 13.6, Platelet Count 319, Mean Platelet Volume 5.5L, Neutrophils (%) (Auto) , Lymphocytes (%) ( Auto) , Monocytes (%) (Auto) , Eosinophils (%) (Auto) , Basophils (%) (Auto) , Neutrophils % (Manual) [Pending], Lymphocytes % (Manual) [Pending], Platelet Estimate [Pending], Platelet Morphology [Pending], Sodium Level 136, Potassium Level 4.8, Chloride Level 99, Carbon Dioxide Level 32, Anion Gap 5, Blood Urea Nitrogen 48H, Creatinine 1.2, Estimat Glomerular Filtration Rate , Glucose Level 240H, Calcium Level 9.5, Magnesium Level 2.4, Total Bilirubin 0.9, Aspartate Amino Transf (AST/SGOT) 36, Alanine Aminotransferase (ALT/SGPT) 26, Alkaline Phosphatase 57, Troponin I [Pending], Total Protein 7.0, Albumin 3.2L, Globulin 3.8, Albumin/Globulin Ratio 0.8L Current Medications Medications (Trade) Dose Ordered Sig/Edwina Route PRN Reason Start Time Stop Time Status Last Admin Dose Admin Acetaminophen (Tylenol) 650 mg Q4H PRN RECTAL Mild Pain (Pain Scale 1-3) 07/26/18 18:30 08/25/18 18:29 07/26/18 21:15 Albuterol/ Ipratropium (Albuterol/ Ipratropium) 3 ml Q4HRT HHN 07/26/18 19:00 07/31/18 18:59 07/29/18 06:53 Apixaban (Eliquis) 2.5 mg Q12HR ORAL 07/26/18 21:00 08/25/18 20:59 07/27/18 08:29 Atropine Sulfate (Atropine Opth Anabelle) 2 drop Q2H PRN SL oral secretions 07/26/18 19:00 08/25/18 18:59 Bisacodyl (Dulcolax) 5 mg DAILYPRN PRN ORAL Constipation 07/26/18 18:30 08/25/18 18:29 Bisacodyl (Dulcolax) 10 mg DAILYPRN PRN RECTAL Constipation 07/26/18 18:30 08/25/18 18:29 Ceftriaxone Sodium 1 gm/ Dextrose 55 ml @ 110 mls/hr Q24H IVPB 07/26/18 18:00 08/02/18 17:59 07/28/18 17:32 Citalopram Hydrobromide (celeXA) 20 mg DAILY ORAL 07/27/18 09:00 08/26/18 08:59 Clonidine HCl (Catapres Tab) 0.1 mg Q4H PRN ORAL sbp>150 07/26/18 16:30 08/25/18 16:29 07/27/18 08:27 Dextrose 1,000 ml @ 100 mls/hr Q10H IV 07/28/18 13:30 08/26/18 13:29 07/28/18 23:50 Diltiazem HCl (Cardizem) 30 mg Q6HR ORAL 07/27/18 00:00 08/26/18 00:00 07/27/18 12:32 Guaifenesin (Robitussin) 400 mg Q6H PRN PO For Cough 07/27/18 06:30 08/26/18 06:29 Hydralazine HCl (Apresoline) 10 mg Q4H PRN IV SBP above 160 07/26/18 23:00 08/25/18 22:59 07/26/18 23:11 Ipratropium [place] (Atrovent) 500 mcg Q4H PRN HHN Shortness of Breath 07/26/18 18:30 07/31/18 18:29 Levothyroxine Sodium (Synthroid) 75 mcg DAILY@0630 ORAL 07/27/18 06:30 08/26/18 06:29 Lorazepam (Ativan 2mg/ml 1ml) 1 mg Q4H PRN IV For Anxiety 07/26/18 21:00 08/02/18 20:59 07/28/18 21:24 Metoprolol Tartrate 10 mg/ Dextrose 65 ml @ 130 mls/hr Q6HR IVPB 07/27/18 00:00 08/26/18 00:00 07/29/18 05:32 Olanzapine (ZyPREXA) 5 mg QPM ORAL 07/27/18 16:30 08/26/18 16:29 Ondansetron HCl (Zofran) 4 mg Q6H PRN IVP Nausea & Vomiting 07/26/18 22:45 08/25/18 22:44 Pantoprazole (Protonix) 40 mg Q12HR IVP 07/27/18 09:00 08/26/18 08:59 07/28/18 21:24 Polyethylene Glycol (Miralax) 17 gm DAILY PRN ORAL Constipation 07/26/18 18:30 08/25/18 18:29 Tolterodine Tartrate (Detrol) 2 mg DAILY ORAL 07/27/18 09:00 08/26/18 08:59 Earl Warren MD Jul 29, 2018 08:19
[2018-07-29] MEDS: Eliquis 2.5mg tablet ORAL SCH ×2 (09:00→20:07)
[2018-07-29] MEDS: Tolterodine 2mg tab ORAL SCH (09:00)
[2018-07-29] MEDS: Citalopram Hydrobromide 10mg Tab ORAL SCH (09:00)
[2018-07-29] MEDS: Pantoprazole Inj IVP SCH ×2 (09:34→20:07)
[2018-07-29 12:00] VITALS: BP 129/73
--- NOTE | 2018-07-29 12:40 | NUR ---
CASE MANAGEMENT:REVIEW 83 YR OLD FEMALE BIBA FROM HOME CC: SOB PMH: HOSPICE?. ALLERGIC TO ASPIRIN SI: RESPIRATORY DISTRESS 95.2 120 23 141/90 97% ON RA WBC+19.2 NA+152 BUN+57 TROPONIN(+) 0.470 IS: IV ATIVAN DUONEB HHN CXR BLOOD CX : TO TELEMETRY IS: IVF@100/HR INTERQUAL CRITERIA MET
[2018-07-29 16:00] VITALS: BP 137/84
--- NOTE | 2018-07-29 16:22 | NUR ---
ST NOTE: BEDSIDE SWALLOW EVAL/CONSULT RECEIVED BEDSIDE SWALLOW EVAL ORDER CHART REVIEWED PRIOR THE EVALUATION COMPLETED SWALLOW CONSULT PT IS A 83-YEAR-OLD FEMALE WHO WAS ADMITTED FOR DYSPNEA. DYSPHAGIA RISK FACTORS: COPD, EMPHYSEMA, H/O ADVANCED DEMENTIA WITH PSYCHOSIS, DMII. PLOF: PT RESIDES AT HOME WITH FAMILY. PT WAS ON HOSPICE CARE. UNKNOWN FOR DIET. PER PT'S POLST: DNR/DNI, SELECTIVE TX, DID NOT INDICATE FOR TUBE FEEDING IF NEEDED. CURRENT STATUS: PT SEEN AT BEDSIDE IN PM. AWAKE, NONVERBAL, DID NOT FOLLOW DIRECTIONS. PT WITH VENTURI MASK(8L). SHORTNESS OF BREATH AND SHALLOW BREATHING WAS NOTED. RESPIRATORY RATE IS HIGH: >30s, HEART RATE IS HIGH: 120s TO 130, WAS WENT UP TO 150s. PER RT, PT IS NOT STABLE, PT MIGHT REQUIRE BIPAP. NO PO WAS GIVEN AT THIS TIME. PT IS AT HIGH RISK FOR ASPIRATION DUE TO PT'S OVERALL WEAKNESS AND RESP INSUFFICIENCY. 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 NPO WITH ORAL CARE 2. CONSIDER TEMPORARILY NONORAL FEEDING MEANS(NGT) IF NEEDED 3. CONSIDER COMFORT MEASURE. 4. SKILLED ST SERVICE TO FOLLOW X 1-2 TIME. D/W RN, WENCESLAO AND THE STAFF
[2018-07-29] MEDS: LORazepam Inj 2mg/ml 1ml IV PRN (18:51)
--- NOTE | 2018-07-29 19:30 | NUR ---
NURSE NOTES: Report received from ANANYA Maria. Patient seen in bed in semi calzada position with oxygen via venturi mask at 9L. No S/Sx of pain is noted via FLACC scale. Noted IV site to Right AC 20g and Left FA 22g, both is intact. CUrrently on IVF of D5W running at 100cc/hr. Pure wick is in place and intacta Addendum: 07/29/18 at 1946 by Gianfranco Winkler RN NURSE NOTES: Report received from ANANYA Maria. Patient seen in bed in semi calzada position with oxygen via venturi mask at 9L. No S/Sx of pain is noted via FLACC scale. Noted IV site to Right AC 20g and Left FA 22g, both is intact. CUrrently on IVF of D5W running at 100cc/hr. Pure wick is in place and intact at this time. Bed is in lowest position. call light is within easy reach while in bed. will continue to monitor.
--- NOTE | 2018-07-29 19:32 | NUR ---
HAND-OFF: Report given to ANANYA Medel.
[2018-07-29 20:00] VITALS: BP 128/74
[2018-07-30] VITALS: BP 131/83
[2018-07-30] MEDS: Albuterol/Ipratropium 3ml neb HHN SCH ×4 (01:13→19:37)
[2018-07-30 04:00] VITALS: BP 124/66
--- NOTE | 2018-07-30 04:15 | Progress Note ---
DATE: 07/29/2018 CARDIOLOGY PROGRESS NOTE SUBJECTIVE: The patient remains DNI status. Prognosis remains poor. She is still with episodes of anxiety and agitation. Heart rates have stabilized for most of the day. OBJECTIVE: VITAL SIGNS: Blood pressure 145/67, heart rate 58 to 89, and respiratory rate 18 to 20. She is afebrile. LUNGS: Diminished breath sounds. HEART: Regular rhythm and rate. Normal S1 and S2. ABDOMEN: Soft. EXTREMITIES: No edema. LABORATORY DATA: White count 19, hemoglobin 16, troponin 0.32, BUN 48, creatinine 1.2, and glucose 240. IMPRESSION: 1. Acute myocardial ischemia. 2. Acute on chronic renal failure. 3. Dehydration. 4. Hypercoaguable state. 5. Hyperchloremia. 6. Mild protein calorie malnutrition. 7. Leukocytosis. PLAN: 1. Hydration. 2. Pain control and anxiolytics. 3. Evaluate for possible source of infection. 4. Maintain current cardiovascular regimen. 5. Conservative management. Mckay Uribe M.D. DR: NINA JOB#: [id number] CC: JUAN MIGUEL
[2018-07-30] MEDS: Metoprolol Tartrate 10 MG in D5W 55 ML IVPB SCH ×3 (04:41→18:42)
[2018-07-30] MEDS: dilTIAZem HCl 30mg tab ORAL SCH ×3 (04:42→18:00)
--- NOTE | 2018-07-30 07:20 | NUR ---
HAND-OFF: Report given to Tim Mcguire RN.
--- NOTE | 2018-07-30 07:20 | NUR ---
NURSE NOTES: Report received from Joan HARE. Patient seen in bed in semi calzada position with oxygen via venturi mask at 15L. Rhythm reported with Sinus tachy during night time nanny. Non-verbal. NPO. Sacral Stage 4 reported. No Signs of pain is noted via FLACC scale. Noted IV site to Right AC 20g and Left FA 22g, both is intact. On D5W IVF running at 100cc/hr. Pure wick is in place and intact. Continue to monitor.
[2018-07-30 08:00] VITALS: BP 128/83
--- NOTE | 2018-07-30 08:05 | NUR ---
NURSE NOTES: seen by Dr. Warren and ordered Ativan prn 1mg IVP to keep patient comfortable per family request. Considering patient putting under hospice care.
--- NOTE | 2018-07-30 08:58 | Pulmonology Progress Note ---
Assessment/Plan Assessment/Plan IMPRESSION: 1. sinus tachycardia. 2. Elevated troponin. 3. Possible demand ischemia. 4. Possible acute myocardial infarction. 5. Evidence of acute renal failure. 6. Hypernatremia. 7. Chronic obstructive pulmonary disease. 8. Shortness of breath. 9. hypertension 10. anxiety PLAN IV hydration bp rx elevated wbc ?due to steroid use off antibiotics ativan prn keep comfortable; daughter may want to provide comfort care in acute DNR confirmed prognosis poor; impression, plan, and exam edited and reviewed in detail care discussed with RN Subjective Allergies: Coded Allergies: ASPIRIN (Verified Allergy, Unknown, 07/26/18) Subjective withdrawn poorly responsive Objective Last 24 Hour Vital Signs Date Time Temp Pulse Resp B/P (MAP) Pulse Ox O2 Delivery O2 Flow Rate FiO2 07/30/18 08:08 68 30 92 Venturi Mask 10.0 45 07/30/18 07:56 92 Venturi Mask 10.0 45 07/30/18 07:56 Venturi Mask 10.0 45 07/30/18 07:56 68 30 92 Venturi Mask 14.0 55 07/30/18 04:42 80 124/66 07/30/18 04:41 80 124/70 07/30/18 04:00 97.9 135 19 124/66 (85) 94 07/30/18 03:38 135 07/30/18 01:16 68 24 91 Venturi Mask 10.0 45 07/30/18 01:09 73 28 90 Venturi Mask 14.0 55 07/30/18 00:00 98.8 75 28 131/83 (99) 96 07/29/18 23:41 120 128/74 07/29/18 23:41 120 128/74 07/29/18 23:30 135 07/29/18 21:00 Nasal Cannula 2.0 07/29/18 20:00 97.6 76 22 128/74 (92) 96 07/29/18 19:37 120 07/29/18 19:25 67 24 92 Venturi Mask 10.0 45 07/29/18 19:10 Venturi Mask 14.0 55 07/29/18 19:10 77 28 91 Venturi Mask 14.0 55 07/29/18 19:09 92 Venturi Mask 14.0 55 07/29/18 18:26 97 137/84 3/18/19 18:00 97 137/84 07/29/18 16:00 168 07/29/18 16:00 96.7 97 20 137/84 (101) 93 07/29/18 12:32 106 129/73 07/29/18 12:00 97.9 93 20 129/73 (91) 96 07/29/18 12:00 106 129/73 07/29/18 12:00 94 07/29/18 10:28 87 24 94 Venturi Mask 8.0 40 07/29/18 10:22 58 16 92 Venturi Mask 8.0 40 07/29/18 09:00 Nasal Cannula 2.0 Intake and Output 07/29/18 07/30/18 18:59 06:59 Intake Total 965 ml Balance 965 ml Intake IV Total 965 ml # Voids 2 Objective GENERAL: A well-developed, chronically ill female. poorly responsive HEENT: Overall fairly negative. NECK: Otherwise supple. LUNGS: Moderate breath sounds. some rhonchi and wheezes. tachypneic CARDIAC: Tachycardic without murmurs or rubs. ABDOMEN: Soft and nontender. no distentions EXTREMITIES: No cyanosis. No clear clubbing. NEUROLOGIC: noncommunicative nonverbal currently. Current Medications Medications (Trade) Dose Ordered Sig/Edwina Route PRN Reason Start Time Stop Time Status Last Admin Dose Admin Acetaminophen (Tylenol) 650 mg Q4H PRN RECTAL Mild Pain (Pain Scale 1-3) 07/26/18 18:30 08/25/18 18:29 07/26/18 21:15 Albuterol/ Ipratropium (Albuterol/ Ipratropium) 3 ml Q6HRT HHN 07/29/18 13:00 07/31/18 18:59 07/30/18 07:53 Apixaban (Eliquis) 2.5 mg Q12HR ORAL 07/26/18 21:00 08/25/18 20:59 07/27/18 08:29 Atropine Sulfate (Atropine Opth Anabelle) 2 drop Q2H PRN SL oral secretions 07/26/18 19:00 08/25/18 18:59 Bisacodyl (Dulcolax) 5 mg DAILYPRN PRN ORAL Constipation 07/26/18 18:30 08/25/18 18:29 Bisacodyl (Dulcolax) 10 mg DAILYPRN PRN RECTAL Constipation 07/26/18 18:30 08/25/18 18:29 Citalopram Hydrobromide (celeXA) 20 mg DAILY ORAL 07/27/18 09:00 08/26/18 08:59 Clonidine HCl (Catapres Tab) 0.1 mg Q4H PRN ORAL sbp>150 07/26/18 16:30 08/25/18 16:29 07/27/18 08:27 Dextrose 1,000 ml @ 100 mls/hr Q10H IV 07/28/18 13:30 08/26/18 13:29 07/30/18 04:40 Diltiazem HCl (Cardizem) 30 mg Q6HR ORAL 07/27/18 00:00 08/26/18 00:00 07/27/18 12:32 Guaifenesin (Robitussin) 400 mg Q6H PRN PO For Cough 07/27/18 06:30 08/26/18 06:29 Hydralazine HCl (Apresoline) 10 mg Q4H PRN IV SBP above 160 07/26/18 23:00 08/25/18 22:59 07/26/18 23:11 Ipratropium [place] (Atrovent) 500 mcg Q4H PRN HHN Shortness of Breath 07/26/18 18:30 07/31/18 18:29 Levothyroxine Sodium (Synthroid) 75 mcg DAILY@0630 ORAL 07/27/18 06:30 08/26/18 06:29 Lorazepam (Ativan 2mg/ml 1ml) 1 mg Q4H PRN IV For Anxiety 07/26/18 21:00 08/02/18 20:59 07/29/18 18:51 Metoprolol Tartrate 10 mg/ Dextrose 65 ml @ 130 mls/hr Q6HR IVPB 07/27/18 00:00 08/26/18 00:00 07/30/18 04:41 Olanzapine (ZyPREXA) 5 mg QPM ORAL 07/27/18 16:30 08/26/18 16:29 Ondansetron HCl (Zofran) 4 mg Q6H PRN IVP Nausea & Vomiting 07/26/18 22:45 08/25/18 22:44 Pantoprazole (Protonix) 40 mg Q12HR IVP 07/27/18 09:00 08/26/18 08:59 07/29/18 20:07 Polyethylene Glycol (Miralax) 17 gm DAILY PRN ORAL Constipation 07/26/18 18:30 08/25/18 18:29 Tolterodine Tartrate (Detrol) 2 mg DAILY ORAL 07/27/18 09:00 08/26/18 08:59 Earl Warren MD Jul 30, 2018 08:58
[2018-07-30] MEDS: Citalopram Hydrobromide 10mg Tab ORAL SCH (09:00)
[2018-07-30] MEDS: Eliquis 2.5mg tablet ORAL SCH ×2 (09:00→21:00)
[2018-07-30] MEDS: Tolterodine 2mg tab ORAL SCH (09:00)
[2018-07-30] MEDS: Pantoprazole Inj IVP SCH ×2 (09:00→21:48)
[2018-07-30] MEDS: LORazepam Inj 2mg/ml 1ml IV PRN ×2 (09:04→13:25)
--- NOTE | 2018-07-30 09:16 | NUR ---
ST NOTE: D/C SUMMARY REASSESSED PT'S CONDITIONS. PT'S RR: >30s. OXYGEN LEVEL: 70s, PT IS LETHARGIC. DISCUSSED WITH RN, STEPHANI. PT'S DAUGHTER WANTS COMFORT MEASURE. D/C FROM SK[facility].
[2018-07-30 12:00] VITALS: BP 157/80
--- NOTE | 2018-07-30 14:18 | NUR ---
RD ASSESSMENT & RECOMMENDATIONS SEE CARE ACTIVITY FOR COMPLETE ASSESSMENT DAILY ESTIMATED NEEDS: Needs based on cardiac 61.7kg 25-30 kcals/kg 1063-7163 total kcals 1-1.2 g protein/kg 62-74 g total protein 25-30 mL/kg 5303-7881 total fluid mLs NUTRITION DIAGNOSIS: Altered nutrition related lab values r/t clinical status as evidenced by elev BG (200's), elev WBC (19.2), elev HGb (16.4), elev BUN (48, trending down). CURRENT DIET: NPO PO DIET RECOMMENDATIONS: LIBERAL/ REGULAR as medically appropriate/ texture per SENIOR INFORMATION SYSTEMS ARCHITECT ENTERAL NUTRITION RECOMMENDATIONS: * Consult RD if non-oral feeds are part of POC * ADDITIONAL RECOMMENDATIONS: 1) RE-calibrate bed scale for accurate CBW EMR wt: 90# vs bed scale wt: 135# 2) Pt is NPO/ w/ no non-oral feeds -> Consult RD if pt is cleared for oral po
[2018-07-30 16:00] VITALS: BP 139/74
--- NOTE | 2018-07-30 19:50 | NUR ---
HAND-OFF: Report given to Yamile ROTH. Pt. remain comfortable.
--- NOTE | 2018-07-30 20:00 | NUR ---
NURSE NOTES: RECEIVED PATIENT NON VERBAL, RECEIVING BREATHING TREATMENT ADMINISTERED BY RT. FALL AND ASPIRATION PRECAUTIONS IN PLACE: CALL LIGHT WITHIN REACH, BED IN LOW POSITION AND BED ALARM ON. WILL CONTINUE WITH PLAN OF CARE.
[2018-07-30 21:00] VITALS: BP 123/74
[2018-07-31] VITALS: BP 133/74
[2018-07-31] MEDS: Metoprolol Tartrate 10 MG in D5W 55 ML IVPB SCH ×5 (00:26→23:50)
[2018-07-31] MEDS: Ipratropium 0.02% Inh Soln 2.5ml UD HHN SCH ×4 (00:48→20:09)
--- NOTE | 2018-07-31 01:00 | Progress Note ---
DATE: 07/30/2018 CARDIOLOGY PROGRESS NOTE SUBJECTIVE: The patient remains tachycardiac, withdrawn, lethargic, and poorly responsive. OBJECTIVE: VITAL SIGNS: Blood pressure 124/66, pulse 130, and respirations 18. LUNGS: Diminished breath sounds. HEART: Regular rhythm. Rapid rate. Normal S1, S2. ABDOMEN: Soft. EXTREMITIES: No edema. IMPRESSION: 1. Advanced dementia. 2. Anxiety. 3. Sinus tachycardia. 4. Leukocytosis due to steroids. 5. Acute renal failure and dehydration and hypovolemia, improving. 6. Hypernatremia, resolved. 7. Acute myocardial ischemia and possible [id number] infarction likely due to hypoperfusion. PLAN: Medical management to include hydration, beta-blockade, anxiolytics, nutritional support, and DNR. Will add topical antiHTN therapy if BP remains elevated. Mckay Uribe M.D. DR: ESTEFANY JOB#: [id number] CC: JUAN MIGUEL
[2018-07-31 04:00] VITALS: BP 137/104
--- NOTE | 2018-07-31 05:30 | NUR ---
NURSE NOTES: PATIENT KEPT CLEAN AND DRY, INCONTINENCE CARE GIVEN NEEDED. CALAZIME CREAM APPLIED TO PERINEAL AREA, BLE ELEVATED ON PILLOW WITH HEELS FLOATING AND HEEL PROTECTORS APPLIED.
--- NOTE | 2018-07-31 07:30 | NUR ---
Receiving Note: Patient resting in bed. RR 42, on non-rebreather mask, just suctioned by RT. Tele monitor reading ST 113. Patient non responsive. Per report from MD Yamile aware of respiratory status and neurological status. RAC IV infusing D5NS @ 100. Patient NPO. Will perform hourly rounding. Call light in reach.
--- NOTE | 2018-07-31 07:41 | NUR ---
HAND-OFF: Report given to Ayla RUTHERFORD RN. PATIENT RESTING IN BED, RT AT BEDSIDE ADMINISTERING HHN TREATMENT.
[2018-07-31 08:00] VITALS: BP 148/95
[2018-07-31] MEDS: Eliquis 2.5mg tablet ORAL SCH ×2 (09:00→21:00)
[2018-07-31] MEDS: Metoprolol Tartrate 50mg tab ORAL SCH ×2 (09:00→22:47)
[2018-07-31] MEDS: Citalopram Hydrobromide 10mg Tab ORAL SCH (09:00)
[2018-07-31] MEDS: Tolterodine 2mg tab ORAL SCH (09:00)
[2018-07-31] MEDS: LORazepam Inj 2mg/ml 1ml IV PRN (09:35)
[2018-07-31] MEDS: Pantoprazole Inj IVP SCH ×2 (09:35→23:43)
--- NOTE | 2018-07-31 11:24 | Pulmonology Progress Note ---
Assessment/Plan Assessment/Plan Pulmonary Progress Note Assessment/Plan IMPRESSION: 1. Sinus tachycardia. 2. Elevated troponin. 3. Possible demand ischemia. 4. Possible acute myocardial infarction. 5. Evidence of acute renal failure. 6. Hypernatremia. 7. Chronic obstructive pulmonary disease. 8. Shortness of breath. 9. hypertension 10. Dementia/anxiety PLAN IV hydration PRN bp rx elevated wbc ?due to steroid use off antibiotics ativan prn keep comfortable; daughter may want to provide comfort care in acute DNR confirmed prognosis poor; impression, plan, and exam edited and reviewed in detail care discussed with RN Subjective Allergies: Coded Allergies: ASPIRIN (Verified Allergy, Unknown, 07/26/18) Subjective withdrawn poorly responsive Objective Vital Signs Noted Objective GENERAL: A well-developed, chronically ill female. poorly responsive HEENT: Overall fairly negative. NECK: Otherwise supple. LUNGS: Moderate breath sounds. some rhonchi and wheezes. tachypneic CARDIAC: Tachycardic without murmurs or rubs. ABDOMEN: Soft and nontender. no distentions EXTREMITIES: No cyanosis. No clear clubbing. NEUROLOGIC: noncommunicative nonverbal currently. Current Medications Medications (Trade) Dose Ordered Sig/Edwina Route PRN Reason Start Time Stop Time Status Last Admin Dose Admin Acetaminophen (Tylenol) 650 mg Q4H PRN RECTAL Mild Pain (Pain Scale 1-3) 07/26/18 18:30 08/25/18 18:29 07/26/18 21:15 Albuterol/ Ipratropium (Albuterol/ Ipratropium) 3 ml Q6HRT HHN 07/29/18 13:00 07/31/18 18:59 07/30/18 07:53 Apixaban (Eliquis) 2.5 mg Q12HR ORAL 07/26/18 21:00 08/25/18 20:59 07/27/18 08:29 Atropine Sulfate (Atropine Opth Anabelle) 2 drop Q2H PRN SL oral secretions 07/26/18 19:00 08/25/18 18:59 Bisacodyl (Dulcolax) 5 mg DAILYPRN PRN ORAL Constipation 07/26/18 18:30 08/25/18 18:29 Bisacodyl (Dulcolax) 10 mg DAILYPRN PRN RECTAL Constipation 07/26/18 18:30 08/25/18 18:29 Citalopram Hydrobromide (celeXA) 20 mg DAILY ORAL 07/27/18 09:00 08/26/18 08:59 Clonidine HCl (Catapres Tab) 0.1 mg Q4H PRN ORAL sbp>150 07/26/18 16:30 08/25/18 16:29 07/27/18 08:27 Dextrose 1,000 ml @ 100 mls/hr Q10H IV 07/28/18 13:30 08/26/18 13:29 07/30/18 04:40 Diltiazem HCl (Cardizem) 30 mg Q6HR ORAL 07/27/18 00:00 08/26/18 00:00 07/27/18 12:32 Guaifenesin (Robitussin) 400 mg Q6H PRN PO For Cough 07/27/18 06:30 08/26/18 06:29 Hydralazine HCl (Apresoline) 10 mg Q4H PRN IV SBP above 160 07/26/18 23:00 08/25/18 22:59 07/26/18 23:11 Ipratropium [place] (Atrovent) 500 mcg Q4H PRN HHN Shortness of Breath 07/26/18 18:30 07/31/18 18:29 Levothyroxine Sodium (Synthroid) 75 mcg DAILY@0630 ORAL 07/27/18 06:30 08/26/18 06:29 Lorazepam (Ativan 2mg/ml 1ml) 1 mg Q4H PRN IV For Anxiety 07/26/18 21:00 08/02/18 20:59 07/29/18 18:51 Metoprolol Tartrate 10 mg/ Dextrose 65 ml @ 130 mls/hr Q6HR IVPB 07/27/18 00:00 08/26/18 00:00 07/30/18 04:41 Olanzapine (ZyPREXA) 5 mg QPM ORAL 07/27/18 16:30 08/26/18 16:29 Ondansetron HCl (Zofran) 4 mg Q6H PRN IVP Nausea & Vomiting 07/26/18 22:45 08/25/18 22:44 Pantoprazole (Protonix) 40 mg Q12HR IVP 07/27/18 09:00 08/26/18 08:59 07/29/18 20:07 Polyethylene Glycol (Miralax) 17 gm DAILY PRN ORAL Constipation 07/26/18 18:30 08/25/18 18:29 Tolterodine Tartrate (Detrol) 2 mg DAILY ORAL 07/27/18 09:00 08/26/18 08:59 Subjective ROS Limited/Unobtainable: No Allergies: Coded Allergies: ASPIRIN (Verified Allergy, Unknown, 07/26/18) Objective Last 24 Hour Vital Signs Date Time Temp Pulse Resp B/P (MAP) Pulse Ox O2 Delivery O2 Flow Rate FiO2 07/31/18 08:00 96.7 114 42 148/95 (112) 97 07/31/18 07:22 Non-Rebreather 15.0 100 07/31/18 07:21 92 Non-Rebreather 15.0 100 07/31/18 07:11 66 28 90 Venturi Mask 14.0 55 07/31/18 07:10 74 28 92 Non-Rebreather 15.0 100 07/31/18 05:56 120 137/104 07/31/18 04:00 120 07/31/18 04:00 97.7 116 38 137/104 (115) 91 07/31/18 00:59 82 24 93 Venturi Mask 14.0 55 07/31/18 00:48 84 30 91 Venturi Mask 14.0 55 07/31/18 00:26 127 133/74 07/31/18 00:00 98.1 66 28 133/74 (93) 91 07/31/18 00:00 127 07/30/18 21:00 Venturi Mask 15.0 07/30/18 21:00 100.3 83 24 123/74 (90) 92 07/30/18 20:00 123 07/30/18 19:48 77 22 94 Venturi Mask 14.0 55 07/30/18 19:40 Venturi Mask 14.0 55 07/30/18 19:40 92 Venturi Mask 14.0 55 07/30/18 19:38 69 30 92 Venturi Mask 14.0 55 07/30/18 18:42 130 139/74 07/30/18 18:00 130 139/74 07/30/18 16:00 99.7 130 44 139/74 (95) 94 07/30/18 15:07 129 07/30/18 12:36 69 22 93 Venturi Mask 14.0 55 07/30/18 12:27 70 30 93 Venturi Mask 14.0 55 07/30/18 12:11 136 157/80 07/30/18 12:00 99.5 136 48 157/80 (105) 91 07/30/18 12:00 136 157/80 07/30/18 11:55 137 Intake and Output 07/30/18 07/31/18 18:59 06:59 Intake Total 500 ml 1095 ml Balance 500 ml 1095 ml Intake IV Total 500 ml 1095 ml # Voids 2 3 Current Medications Medications (Trade) Dose Ordered Sig/Edwina Route PRN Reason Start Time Stop Time Status Last Admin Dose Admin Acetaminophen (Tylenol) 650 mg Q4H PRN RECTAL Mild Pain (Pain Scale 1-3) 07/26/18 18:30 08/25/18 18:29 07/26/18 21:15 Apixaban (Eliquis) 2.5 mg Q12HR ORAL 07/26/18 21:00 08/25/18 20:59 07/27/18 08:29 Atropine Sulfate (Atropine Opth [place]) 2 drop Q2H PRN SL oral secretions 07/26/18 19:00 08/25/18 18:59 Bisacodyl (Dulcolax) 5 mg DAILYPRN PRN ORAL Constipation 07/26/18 18:30 08/25/18 18:29 Bisacodyl (Dulcolax) 10 mg DAILYPRN PRN RECTAL Constipation 07/26/18 18:30 08/25/18 18:29 Citalopram Hydrobromide (celeXA) 20 mg DAILY ORAL 07/27/18 09:00 08/26/18 08:59 Clonidine HCl (Catapres Tab) 0.1 mg Q4H PRN ORAL sbp>150 07/26/18 16:30 08/25/18 16:29 07/27/18 08:27 Dextrose 1,000 ml @ 100 mls/hr Q10H IV 07/28/18 13:30 08/26/18 13:29 07/31/18 05:56 Guaifenesin (Robitussin) 400 mg Q6H PRN PO For Cough 07/27/18 06:30 08/26/18 06:29 Hydralazine HCl (Apresoline) 10 mg Q4H PRN IV SBP above 160 07/26/18 23:00 08/25/18 22:59 07/26/18 23:11 Ipratropium [place] (Atrovent) 500 mcg Q4H PRN HHN Shortness of Breath 07/26/18 18:30 07/31/18 18:29 Ipratropium [place] (Atrovent) 500 mcg Q6HRT HHN 07/31/18 01:00 08/05/18 00:59 07/31/18 07:11 Levothyroxine Sodium (Synthroid) 75 mcg DAILY@0630 ORAL 07/27/18 06:30 08/26/18 06:29 Lorazepam (Ativan 2mg/ml 1ml) 1 mg Q4H PRN IV For Anxiety 07/26/18 21:00 08/02/18 20:59 07/31/18 09:35 Metoprolol Tartrate (Lopressor) 50 mg Q12HR ORAL 07/31/18 09:00 08/30/18 08:59 Metoprolol Tartrate 10 mg/ Dextrose 65 ml @ 130 mls/hr Q6HR IVPB 07/27/18 00:00 08/26/18 00:00 07/31/18 05:56 Olanzapine (ZyPREXA) 5 mg QPM ORAL 07/27/18 16:30 08/26/18 16:29 Ondansetron HCl (Zofran) 4 mg Q6H PRN IVP Nausea & Vomiting 07/26/18 22:45 08/25/18 22:44 Pantoprazole (Protonix) 40 mg Q12HR IVP 07/27/18 09:00 08/26/18 08:59 07/31/18 09:35 Polyethylene Glycol (Miralax) 17 gm DAILY PRN ORAL Constipation 07/26/18 18:30 08/25/18 18:29 Tolterodine Tartrate (Detrol) 2 mg DAILY ORAL 07/27/18 09:00 08/26/18 08:59 Mckay Bynum MD Jul 31, 2018 11:24
[2018-07-31 12:00] VITALS: BP 163/107
--- NOTE | 2018-07-31 12:27 | NUR ---
Collaborating with Dr. Bynum. Per patient's daughter Ivone, over the phone, requesting comfort care. Informed Dr. Bynum to contact doctor and received 1 new verbal order for morphine PRN.
[2018-07-31] MEDS ORDERED: Acetaminophen 650 MG SUPP RECTAL PRN (12:30)
[2018-07-31] MEDS: Morphine Sulfate 2mg/ml Inj(IV/IM USE ONLY) IVP PRN ×2 (12:56→17:47)
--- NOTE | 2018-07-31 13:26 | NUR ---
CASE MANAGEMENT:REVIEW 07/31/18 SI: ACUTE RENAL FAILURE. DEHYDRATION. AMI ADVANCED DEMENTIA 96.7 114 42 148/95 97% ON NON REBREATHER 15L @ 100% FIO2 WBC+19.2 BUN+48 TROPONIN(+) 0.320 IS: START IV MORPHINE Q3HRS PRN IV LOPRESSOR Q6HRS ATROVENT HHN Q6HRS RTC IVF@100/HR : TELEMETRY STATUS DCP: PATIENT IS FROM HOME PLAN: COMFORT CARE
[2018-07-31 16:00] VITALS: BP 161/107
--- NOTE | 2018-07-31 19:43 | NUR ---
end of shift Patient appearing comfortable, family at bed side. Non-responsive however. Family appearing to be accepting of circumstances. Discussed administration of anxiolytics and narcotics. Family advocating for comfort. IV still infusing, continuing on non-rebreather for oxygen support. RR decreased in 30s now. Less facial grimacing. Plan to discuss treatment tomorrow again with MD. Patient's daughter said she spoke to Dr. Elias today.
--- NOTE | 2018-07-31 19:44 | NUR ---
NURSE NOTES: Received report from ANANYA Guajardo. Patient in bed asleep showing no signs of acute distress. Respiration even and non labored on 15L O2 Non-rebreather Mask. No SOB noted. HOB elevated, aspiration precaution observed. IV line patent and intact. Bed in lowest position. Call light within reach. All needs attended and met. Will continue plan of care.
--- NOTE | 2018-07-31 21:45 | NUR ---
HAND-OFF: Report given to ANANYA Acosta.
--- NOTE | 2018-07-31 22:00 | NUR ---
NURSE NOTES: Report received from ANANYA Fink. Pt is sleeping in bed. IV access intact and patent. Bed in the lowest position, bed brakes engaged, side rails up x3, call light within reach. Will continue to monitor.
[2018-08-01] VITALS (9 sets, daily range): BP systolic 115–171; BP diastolic 73–103
[2018-08-01] MEDS: Ipratropium 0.02% Inh Soln 2.5ml UD HHN SCH ×5 (01:37→21:28)
[2018-08-01] MEDS ORDERED: Metoprolol Tartrate 10 MG in D5W 55 ML IVPB SCH (03:00)
--- NOTE | 2018-08-01 04:15 | Progress Note ---
DATE: 07/31/2018 CARDIOLOGY PROGRESS NOTE SUBJECTIVE: The patient's condition is largely unchanged. She remains withdrawn, lethargic, and poorly responsive. She is on IV fluids. Family are at bedside. The patient continues to receive anxiolytics and narcotics with comfort. OBJECTIVE: VITAL SIGNS: Blood pressure is 161/107, heart rate 105, respiratory rate 18, and afebrile. LUNGS: Diminished breath sounds bilaterally. CARDIAC: Regular rhythm. Rapid rate. Normal S1, S2. ABDOMEN: Soft. EXTREMITIES: Trace edema. IMPRESSION: 1. Advanced dementia. 2. Dehydration. 3. Hypernatremia. 4. Dysphagia. 5. Sinus tachycardia. 6. Chronic obstructive pulmonary disease. 7. Acute myocardial ischemia and possible non-ST elevation infarction. 8. Labile hypertension, likely related to anxiety and pain. PLAN: 1. Options are limited. 2. We will recheck laboratory studies. 3. We will adjust IV fluids. 4. We will continue analgesics and pain control. 5. One should consider hospice and continuous morphine drip, otherwise a feeding tube may be required for adequate administration of drugs senior living. Mckay Uribe M.D. DR: QUE JOB#: [id number] CC:
[2018-08-01] MEDS: Metoprolol Tartrate 10 MG in D5W 55 ML IVPB SCH (06:39)
[2018-08-01 07:14] LABS: HEMATOCRIT 44.1 % (37.0-47.0); HEMOGLOBIN 15.6 G/DL (12.0-16.0); MEAN CORPUSCULAR VOLUME 88 FL (80-99); PLATELET COUNT 221 K/UL (150-450); RED BLOOD COUNT 5.01 M/UL (4.20-5.40); RED CELL DISTRIBUTION WIDTH 12.8 % (11.6-14.8)
[2018-08-01 07:23] LABS: WHITE BLOOD COUNT 24.2 K/UL (4.8-10.8)
[2018-08-01 07:41] LABS: ALANINE AMINOTRANSFERASE 47 U/L (12-78); ALBUMIN 2.3 G/DL (3.4-5.0); ALBUMIN/GLOBULIN RATIO 0.5 (1.0-2.7); ALKALINE PHOSPHATASE 86 U/L (46-116); ANION GAP 11 mmol/L (5-15); ASPARTATE AMINO TRANSFERASE 53 U/L (15-37); BILIRUBIN,TOTAL 1.4 MG/DL (0.2-1.0); BLOOD UREA NITROGEN 64 mg/dL (7-18); CALCIUM 9.2 MG/DL (8.5-10.1); CARBON DIOXIDE 24 MMOL/L (21-32); CHLORIDE 83 MMOL/L (98-107); CREATININE 1.7 MG/DL (0.55-1.30); POTASSIUM 4.5 MMOL/L (3.5-5.1)
[2018-08-01 07:50] LABS: BILIRUBIN,DIRECT 0.4 MG/DL (0.0-0.3); SODIUM 119 MMOL/L (136-145)
--- NOTE | 2018-08-01 07:56 | NUR ---
HAND-OFF: Report given to ANANYA Mann. Plan of care endorsed.
--- NOTE | 2018-08-01 07:58 | NUR ---
NURSE NOTES: Pt received from Claudette HARE alert and oriented x0, nonverbal with no s/s of acute distress. Pt is on nonrebreather mask 15L, saturating at 94%. IV site asymptomatic and patent. Bed in lowest position. Call light and belongings within reach. Received call from lab that pt had Sodium level of 119, Troponin 0.190, and WBC level of 24.2. RN reported lab values to Dr. Warren who stated that the "pt's meds be d/marty except for Ativan PRN. Start morphine drip at 5 mg/hr. Daughter wants comfort care." Will implement and carry out orders.
--- NOTE | 2018-08-01 08:17 | Pulmonology Progress Note ---
Assessment/Plan Assessment/Plan IMPRESSION: 1. sinus tachycardia. 2. Elevated troponin. 3. Possible demand ischemia. 4. Possible acute myocardial infarction. 5. Evidence of acute renal failure. 6. Hypernatremia. 7. Chronic obstructive pulmonary disease. 8. Shortness of breath. 9. hypertension 10. anxiety PLAN IV hydration morphine drip ativan prn keep comfortable; per daughter dying patient protocol DNR confirmed prognosis poor; impression, plan, and exam edited and reviewed in detail care discussed with RN Subjective ROS Limited/Unobtainable: Yes Allergies: Coded Allergies: ASPIRIN (Verified Allergy, Unknown, 07/26/18) Subjective withdrawn poorly responsive per daughter, wants comfort care and dying patient protocol Objective Last 24 Hour Vital Signs Date Time Temp Pulse Resp B/P (MAP) Pulse Ox O2 Delivery O2 Flow Rate FiO2 08/01/18 08:13 Non-Rebreather 15.0 100 08/01/18 08:12 95 Non-Rebreather 15.0 100 08/01/18 08:11 55 28 95 Non-Rebreather 15.0 100 08/01/18 08:01 52 28 95 Non-Rebreather 15.0 100 08/01/18 06:39 68 177/93 08/01/18 04:19 68 177/93 08/01/18 04:00 135 08/01/18 04:00 97.0 75 24 171/86 (114) 92 08/01/18 02:48 162/96 08/01/18 01:47 92 20 96 Non-Rebreather 15.0 100 08/01/18 01:39 109 26 Non-Rebreather 15.0 100 08/01/18 01:37 92 24 95 Non-Rebreather 15.0 100 08/01/18 00:00 117 08/01/18 00:00 97.0 113 34 153/103 (120) 94 07/31/18 23:50 81 172/75 07/31/18 22:47 86 161/107 07/31/18 22:30 Non-Rebreather 15.0 07/31/18 20:19 86 20 96 Non-Rebreather 15.0 100 07/31/18 20:13 Non-Rebreather 15.0 100 07/31/18 20:12 95 Non-Rebreather 15.0 100 3/20/19 20:09 85 28 95 Non-Rebreather 15.0 100 07/31/18 18:34 105 161/107 07/31/18 18:17 97.9 07/31/18 16:00 105 07/31/18 16:00 97.9 114 35 161/107 (125) 99 07/31/18 12:59 108 24 97 Non-Rebreather 15.0 100 07/31/18 12:54 116 163/107 07/31/18 12:49 110 28 97 Non-Rebreather 15.0 100 07/31/18 12:00 116 07/31/18 12:00 99.2 116 40 163/107 (125) 97 07/31/18 09:00 Non-Rebreather 15.0 Intake and Output 07/31/18 08/01/18 19:00 07:00 # Voids 3 1 Objective GENERAL: A well-developed, chronically ill female. poorly responsive HEENT: Overall fairly negative. NECK: Otherwise supple. LUNGS: Moderate breath sounds. some rhonchi and wheezes. tachypneic CARDIAC: Tachycardic without murmurs or rubs. ABDOMEN: Soft and nontender. no distentions EXTREMITIES: No cyanosis. No clear clubbing. NEUROLOGIC: noncommunicative nonverbal currently. Laboratory Tests 08/01/18 06:35: White Blood Count 24.2*H, Red Blood Count 5.01, Hemoglobin 15.6, Hematocrit 44.1 , Mean Corpuscular Volume 88, Mean Corpuscular Hemoglobin 31.2H, Mean Corpuscular Hemoglobin Concent 35.5, Red Cell Distribution Width 12.8, Platelet Count 221, Mean Platelet Volume 7.1, Neutrophils (%) (Auto) , Lymphocytes (%) ( Auto) , Monocytes (%) (Auto) , Eosinophils (%) (Auto) , Basophils (%) (Auto) , Neutrophils % (Manual) [Pending], Lymphocytes % (Manual) [Pending], Platelet Estimate [Pending], Platelet Morphology [Pending], Sodium Level 119*L, Potassium Level 4.5, Chloride Level 83L, Carbon Dioxide Level 24, Anion Gap 11, Blood Urea Nitrogen 64H, Creatinine 1.7H, Estimat Glomerular Filtration Rate , Glucose Level 182H, Calcium Level 9.2, Magnesium Level 2.1, Total Bilirubin 1.4H , Direct Bilirubin 0.4H, Aspartate Amino Transf (AST/SGOT) 53H, Alanine Aminotransferase (ALT/SGPT) 47, Alkaline Phosphatase 86, Troponin I 0.190H, Total Protein 6.7, Albumin 2.3L, Globulin 4.4, Albumin/Globulin Ratio 0.5L Current Medications Medications (Trade) Dose Ordered Sig/Edwina Route PRN Reason Start Time Stop Time Status Last Admin Dose Admin Dextrose 1,000 ml @ 100 mls/hr Q10H IV 07/28/18 13:30 08/26/18 13:29 08/01/18 06:38 Ipratropium [place] (Atrovent) 500 mcg Q6HRT HHN 07/31/18 01:00 08/05/18 00:59 08/01/18 08:01 Lorazepam (Ativan 2mg/ml 1ml) 1 mg Q4H PRN IV For Anxiety 07/26/18 21:00 08/02/18 20:59 07/31/18 09:35 Earl Warren MD Aug 01, 2018 08:17
[2018-08-01] MEDS ORDERED: PCA Education Pamphlet MISC ONE (14:00)
[2018-08-01] MEDS ORDERED: Morphine Sulfate 4mg/ml Inj (IV USE ONLY) IVPB SCH ×2 (14:00→17:00)
[2018-08-01] MEDS ORDERED: Rate Change PCA 1 Each MISC PRN (14:00)
[2018-08-01] MEDS ORDERED: PCA Morphine 30mg/30ml IV PRN (14:01)
[2018-08-01] MEDS ORDERED: Rate Change Narcotic Drip MISC PRN (14:15)
[2018-08-01] MEDS ORDERED: Narcotic Shift Volume MISC SCH (15:00)
[2018-08-01] MEDS ORDERED: PCA shift volume MISC SCH (19:00)
--- NOTE | 2018-08-01 19:30 | NUR ---
NURSE NOTES: Pt's daughter asked that the breathing tx be continued even through comfort care measures. RN endorsed to Dr. Warren who agreed and asked that the order for Ipratropium HHN be continued through comfort care.
--- NOTE | 2018-08-01 19:32 | NUR ---
HAND-OFF: Report given to ANANYA Orosco.
--- NOTE | 2018-08-01 19:34 | NUR ---
NURSE NOTES: Received report from ANANYA Mann. Patient in bed asleep showing no signs of acute distress. Respiration even and non labored on 10L Non-rebreather mask. No SOB noted. HOB elevated. IV line patent and intact running on GEOSPATIAL IMAGE ANALYST pump. Vitals stable Bed in lowest position. Comfort measure observed. All needs attended and met. Will continue to monitor.
[2018-08-01] MEDS ORDERED: Ipratropium 0.02% Inh Soln 2.5ml UD HHN SCH (20:46)
[2018-08-02] VITALS: BP 90/51
[2018-08-02] MEDS: Ipratropium 0.02% Inh Soln 2.5ml UD HHN SCH (01:00)
[2018-08-02 04:00] VITALS: BP 65/29
--- NOTE | 2018-08-02 04:40 | NUR ---
PRONOUNCEMENT: No Code. Called to pronounce patient. Absence of spontaneous respirations, no cardiac or breath sounds on auscultation. Pupils fixed and dilated. No carotid pulse or chest movement. Patient at 0440 08/02/2018. mechelle Piña notified PER renee Almendarez (chg Rn) . Family was notified at .
--- NOTE | 2018-08-02 05:20 | NUR ---
NURSE NOTES: Called and left a message to Informed Dr. Warren and Daughter Marco A about passing of patient at 4:40am. Postmortem rendered. Addendum: 08/02/18 at 0749 by ROICO DEL ROSARIO RN Postmortem care rendered. Called [facility] per protocol
--- NOTE | 2018-08-02 05:30 | NUR ---
NURSE NOTES: 10:26 pm Morphine 29.9ml started 4:17 am Morphine 3ml wasted 4:17am Morphine 30ml started 5:30am Morphine wasted 29ml.
--- NOTE | 2018-08-03 06:00 | Progress Note ---
DATE: 08/01/2018 CARDIOLOGY PROGRESS NOTE SUBJECTIVE: The patient is withdrawn, poorly responsive, preterminal. Blood pressure remains elevated. Heart rate is labile. Monitored rhythm sinus and sinus tachycardia with episodes of atrial fibrillation. OBJECTIVE: GENERAL: Nonverbal. LUNGS: Diminished breath sounds. CARDIAC: Irregularly irregular rhythm. Normal S1, S2. ABDOMEN: Soft. EXTREMITIES: No edema. IMPRESSION: 1. Advanced dementia. 2. Paroxysmal atrial fibrillation. 3. COPD. 4. Acute myocardial ischemia and possible [id number] infarction. 5. Preterminal state. PLAN: 1. Comfort care. 2. Dying patient protocol to be initiated. I will sign off. Mckay Uribe M.D. DR: QUE JOB#: [id number] CC:
--- NOTE | 2018-08-04 15:31 | Discharge Summary ---
Discharge Summary Discharge Summary _ SUMMARY DATE OF ADMISSION: 07/26/2018 DATE OF EXPIRATION: 08/02/2018 REASON FOR ADMISSION: 83 years old female with past medical history of COPD, hypothyroidism, possible coronary artery disease, dementia with psychosis, possible thrombotic disorder, chronic pain, possible depression, urinary incontinence, constipation, presented to emergency department with significant respiratory distress. Patient apparently was on hospice care. The family wanted to revoke hospice. The daughter still confirmed DNR/DNI status. Patient by herself was unable to provide much of the information. Upon evaluation in emergency department patient required supplemental oxygen of 4 L with pulse oximetry reaching 97%. ABG was stable on current FiO2. Patient was tachycardic with heart rate of 120, hypothermic with temperature 95.2 and tachypneic with respiratory rate initially from 28 , then up to 40. Laboratory workup revealed no leukocytosis, stable hemoglobin and hematocrit. Chemistry showed evidence of dehydration with sodium 150, BUN 57, creatinine 1.2. Glucose 130. Troponin elevated 0.47. Lactic acid 1.4. Albumin 3.5. Urinalysis revealed +3 protein, +2 ketones, +2 blood, but no evidence of urinary tract infection. Chest x-ray demonstrated minimal interstitial prominence and central bronchial wall thickening, possibly related to senescent changes or COPD changes. No definite acute process. Patient was admitted for further management. CONSULTANTS: weather clerk HOSPITAL COURSE: Patient admitted to telemetry floor and started on hypotonic IV solution. DNR/DNI status was confirmed. Patient started on intravenous antibiotics and intravenous steroids. Inhaled bronchodilator provided via HHN therapy. Supplemental oxygen provided as needed to keep pulse oximetry above 92%. Renal parameters and electrolytes were closely monitored, electrolytes corrected as needed. Bilingual Loan Processor closely followed due to elevated troponin. Blood pressure demonstrated hypertensive urgency . Antihypertensive regimen initially consisted of topical and intravenous antihypertensive , and further optimized as per cardiology recommendation. Serial troponin showed trend down, but still elevated; last troponin -0.19. Patient started on full anticoagulation Patient started on cautious use of beta-shay . Pain management was addressed. Bedside swallow evaluation revealed high risk for aspiration. Speech therapist recommended non-oral feeding if needed. Patient developed leukocytosis on 07/29 WBC- 19.2 with kow-grade fever 100.3. Blood cultures were negative. Patient was on empiric antibiotics. Leukocytosis was possibly due to steroids. Anxiolytic provided as needed. Patient developed paroxysmal atrial fibrillation. Heart rate was controlled with beta-shay and Cardizem. Apixaban provided for anticoagulation. Supplemental oxygen further titrated to keep pulse oximetry above 90%. Patient was on Venturi mask and then on 100% nonrebreathing mask. Patient condition remained critical and overall prognosis was extremely poor. Family decided on comfort care Dying protocol initiated with morphine drip. Patient was pronounced on 08/02 at 0440. Cause of : cardiopulmonary arrest FINAL DIAGNOSES: Hypertensive urgency Acute myocardial ischemia , possible non-STEMI Acute hypoxemic respiratory failure Acute kidney injury due to prerenal azotemia Severe dehydration with hypernatremia and hyperchloremia COPD with paroxysmal bronchospasm Possible aspiration pneumonia Advanced dementia Aspirin allergy History of hypercoagulable state Sinus tachycardia Mild protein calorie malnutrition Leucocytosis Dysphagia I have been assigned to dictate discharge summary for this account. I was not involved in the patient's management. Deja Benavides NP Aug 04, 2018 15:31
== END 2018-08-02 13:46 | disposition expired ==
LOC: EDBD 12:49 → EMR 13:43 → 2E 14:08 → EDBEDREQ 14:32 → 4E 07-31 20:47 → 2E 07-31 22:28
DX: I21.4 Non-ST elevation (NSTEMI) myocardial infarction (principal); J96.01 Acute respiratory failure with hypoxia; J69.0 Pneumonitis due to inhalation of food and vomit; N17.9 Acute kidney failure, unspecified; E87.0 Hyperosmolality and hypernatremia; E44.1 Mild protein-calorie malnutrition; Z51.5 Encounter for palliative care; E86.0 Dehydration; J44.9 Chronic obstructive pulmonary disease, unspecified; I16.0 Hypertensive urgency; R00.0 Tachycardia, unspecified; Z66 Do not resuscitate; E03.9 Hypothyroidism, unspecified; E87.8 Other disorders of electrolyte and fluid balance, not elsewhere classified; J98.01 Acute bronchospasm; F03.90 Unspecified dementia, unspecified severity, without behavioral disturbance, psychotic disturbance, mood disturbance, and anxiety; Z88.6 Allergy status to analgesic agent; D72.829 Elevated white blood cell count, unspecified; T38.0X5A Adverse effect of glucocorticoids and synthetic analogues, initial encounter; R13.10 Dysphagia, unspecified; D75.1 Secondary polycythemia; F41.9 Anxiety disorder, unspecified
CPT/HCPCS: 36415; 36600; 71045; 80048; 80053; 81003; 82248; 82550; 82803; 83605; 83735; 84484; 85007; 85025; 87040; 93005; 94640; 94664; 94760; 96374; 96375; 99285; J7620